=== PATIENT | male | born 1945 | race Caucasian/White ===

== ENCOUNTER 2017-08-30 14:16 | Inpatient (IN) | payer MEDICARE, OTHER ==
[2017-08-30] MEDS ORDERED: Albuterol/Ipratropium 3.0-0.5 MG/3 ML Neb Soln NEB ONE (15:09)
--- NOTE | 2017-08-30 15:27 | EDM.PDOC ---
ED HPI GENERAL MEDICAL PROBLEM - General Chief Complaint: Cardiovascular Problem Stated Complaint: SHORTNESS OF BREATH CHEST COLD Time Seen by Provider: 08/30/17 14:40 Source of Information: Reports: Patient, Family, Provider History Limitations: Reports: No Limitations - History of Present Illness INITIAL COMMENTS - FREE TEXT/NARRATIVE: 72-year-old male was sent over from the clinic because of increased respiratory effort, congestive heart failure and activity intolerance due to dyspnea. A chest x-ray was done and it was felt he had either "pneumonia or heart failure" . He was sent over to the emergency room for further evaluation. The patient has been ill for 4 days, more short of breath when lying down and can barely walk across a room without getting short of breath. 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 He has no history of asthma. He has a cough which is nonproductive. His chief complaint is shortness of breath. Onset: Gradual (4 days ago) Severity: Moderate Worsens with: Reports: Other (Lying down causes increased symptoms) Associated Symptoms: Reports: Cough, Malaise, Shortness of Breath, Weakness. Denies: Chest Pain, Fever/Chills - Related Data Allergies Allergy/AdvReac Type Severity Reaction Status Date / Time No Known Allergies Allergy Verified 08/30/17 14:35 Home Meds: Home Meds Aspirin [Halfprin] 81 mg PO DAILY 08/02/14 [History] Clopidogrel Bisulfate [Clopidogrel] 75 mg PO DAILY 08/02/14 [History] hydrALAZINE [Apresoline] 50 mg PO TID 08/02/14 [History] Carvedilol 12.5 mg PO BID 08/30/17 [History] Chlorthalidone 25 mg PO DAILY 08/30/17 [History] Lisinopril 40 mg PO DAILY 08/30/17 [History] amLODIPine Besylate [Amlodipine Besylate] 5 mg PO DAILY 08/30/17 [History] Past Medical History HEENT History: Reports: None Cardiovascular History: Reports: None Gastrointestinal History: Reports: None Genitourinary History: Reports: Hydronephrosis, Pyelonephritis Musculoskeletal History: Reports: Back Pain, Chronic, Fracture Neurological History: Reports: CVA Endocrine/Metabolic History: Reports: Obesity/BMI 30+ - Past Surgical History Head Surgeries/Procedures: Reports: None HEENT Surgical History: Reports: Myringotomy w Tube(s) Cardiovascular Surgical History: Reports: Coronary Artery Stent GI Surgical History: Reports: Cholecystectomy Male Surgical History: Reports: None Endocrine Surgical History: Reports: None Neurological Surgical History: Reports: None Musculoskeletal Surgical History: Reports: None Social & Family History - Family History Family Medical History: Noncontributory Cardiac: Reports: CAD - Tobacco Use Smoking Status *Q: Current Every Day Smoker Years of Tobacco use: 55 Packs/Tins Daily: 1 Used Tobacco, but Quit: No Second Hand Smoke Exposure: Yes - Caffeine Use Caffeine Use: Reports: Coffee - Recreational Drug Use Recreational Drug Use: No ED ROS GENERAL - Review of Systems Review Of Systems: See Below Constitutional: Reports: Malaise. Denies: Fever, Chills HEENT: Denies: Rhinitis, Throat Pain Respiratory: Reports: Shortness of Breath, Cough Cardiovascular: Reports: Lightheadedness (With activity). Denies: Chest Pain GI/Abdominal: Denies: Abdominal Pain, Nausea, Vomiting : Reports: No Symptoms Skin: Reports: No Symptoms Neurological: Denies: Headache Psychiatric: Reports: No Symptoms ED EXAM, GENERAL - Physical Exam Exam: See Below Exam Limited By: No Limitations General Appearance: Alert, Mild Distress (Patient is in mild respiratory distress with increased effort although his oxygen saturations are normal) Respiratory/Chest: Respiratory Distress, Decreased Breath Sounds, Rales, Wheezing (Patient has diffuse rales bilaterally, also diffuse expiratory wheezing) Cardiovascular: Regular Rate, Rhythm GI/Abdominal: Soft, Non-Tender Extremities: Pedal Edema (Tense bilateral lower extremity edema is present) Neurological: Alert, Oriented, No Motor/Sensory Deficits Psychiatric: Normal Affect, Normal Mood Skin Exam: Warm, Dry Course - Vital Signs Last Recorded V/S: Last Vital Signs Temp 97.8 F 08/31/17 13:57 Pulse 76 08/31/17 16:28 Resp 25 H 08/31/17 16:00 BP 186/59 H 08/31/17 16:28 Pulse Ox 96 08/31/17 17:25 - Orders/Labs/Meds Orders: Medication Orders Acetaminophen (Tylenol) 650 mg PO Q4H PRN PRN Reason: Pain (Mild 1-3)/fever Albuterol (Proventil Neb Soln) 2.5 mg NEB Q4H PRN PRN Reason: Shortness Of Breath/wheezing Last Admin: 08/31/17 17:15 Dose: 2.5 mg Albuterol/Ipratropium (Duoneb 3.0-0.5 Mg/3 Ml) 3 ml NEB QIDRT [facility] Last Admin: 08/31/17 14:21 Dose: 3 ml Admin: 08/31/17 11:11 Dose: 3 ml Admin: 08/31/17 07:21 Dose: 3 ml Admin: 08/30/17 20:40 Dose: 3 ml Amlodipine Besylate (Norvasc) 10 mg PO DAILY [facility] Last Admin: 08/31/17 09:14 Dose: 10 mg Aspirin (Halfprin) 81 mg PO DAILY [facility] Last Admin: 08/31/17 08:18 Dose: 81 mg Azithromycin (Zithromax) 500 mg PO Q24H [facility] Last Admin: 08/31/17 17:53 Dose: 500 mg Admin: 08/30/17 19:04 Dose: 500 mg Carvedilol (Coreg) 12.5 mg PO BIDMEALS [facility] Last Admin: 08/31/17 16:28 Dose: 12.5 mg Admin: 08/31/17 08:17 Dose: 12.5 mg Admin: 08/30/17 19:04 Dose: 12.5 mg Chlorthalidone (Chlorthalidone) 25 mg PO DAILY [facility] Last Admin: 08/31/17 08:18 Dose: 25 mg Clopidogrel Bisulfate (Plavix) 75 mg PO DAILY [facility] Last Admin: 08/31/17 08:18 Dose: 75 mg Hydralazine HCl (Apresoline) 75 mg PO TID [facility] Last Admin: 08/31/17 13:56 Dose: 75 mg Ceftriaxone Sodium 2 gm/ (Sodium Chloride) 50 mls @ 100 mls/hr IV Q24H [facility] Last Admin: 08/31/17 17:02 Dose: 100 mls/hr Admin: 08/30/17 19:10 Dose: 100 mls/hr Ondansetron HCl (Zofran Odt) 4 mg PO Q6H PRN PRN Reason: Nausea able to take PO Oseltamivir Phosphate (Tamiflu) 30 mg PO DAILY [facility] Last Admin: 08/31/17 09:14 Dose: 30 mg Polyethylene Glycol (Miralax) 17 gm PO DAILY PRN PRN Reason: Constipation Prednisone (Prednisone) 20 mg PO BIDAC [facility] Last Admin: 08/31/17 16:34 Dose: 20 mg Admin: 08/31/17 09:14 Dose: 20 mg Senna/Docusate Sodium (Senna Plus) 1 tab PO BID PRN PRN Reason: Constipation Sodium Chloride (Saline Flush) 10 ml FLUSH ASDIRECTED PRN PRN Reason: Keep Vein Open Last Admin: 08/30/17 16:24 Dose: 10 ml Labs: Laboratory Tests 08/30/17 08/30/17 Range/Units 15:14 15:14 WBC 7.3 (4.5-11.0) K/uL RBC 4.35 (4.30-5.90) M/uL Hgb 13.3 D (12.0-15.0) g/dL Hct 41.0 (40.0-54.0) % MCV 94 (80-98) fL MCH 31 (27-31) pg MCHC 32 (32-36) % Plt Count 152 (150-400) K/uL Neut % (Auto) 68 H (36-66) % Lymph % (Auto) 23 L (24-44) % [place] % (Auto) 8 H (2-6) % Eos % (Auto) 2 (2-4) % Baso % (Auto) 1 (0-1) % Sodium 135 L (140-148) mmol/L Potassium 5.3 H (3.6-5.2) mmol/L Chloride 104 (100-108) mmol/L Carbon Dioxide 21 (21-32) mmol/L Anion Gap 15.3 H (5.0-14.0) mmol/L BUN 34 H (7-18) mg/dL Creatinine 2.3 H (0.8-1.3) mg/dL Est Cr Clr Drug Dosing 29.46 mL/min Estimated GFR (MDRD) 28 L (>60) Glucose 112 H (74-106) mg/dL Calcium 8.5 (8.5-10.1) mg/dL Total Bilirubin 0.4 D (0.2-1.0) mg/dL AST 32 (15-37) U/L ALT 35 (12-78) U/L Alkaline Phosphatase 98 (46-116) U/L Troponin I 0.477 H* (0.000-0.056) ng/mL Total Protein 5.9 L (6.4-8.2) g/dL Albumin 2.4 L (3.4-5.0) g/dL Globulin 3.5 (2.3-3.5) g/dL Albumin/Globulin Ratio 0.7 L (1.2-2.2) Meds: Medications Generic Name Dose Route Start Last Admin Trade Name Freq PRN Reason Stop Dose Admin Acetaminophen 650 mg 08/30/17 18:09 Tylenol PO Q4H PRN Pain (Mild 1-3)/fever Albuterol 2.5 mg 08/30/17 18:09 08/31/17 17:15 Proventil Neb Soln NEB 2.5 mg Q4H PRN Administration Shortness Of Breath/wheezing Albuterol/Ipratropium 3 ml 08/30/17 21:00 08/31/17 14:21 Duoneb 3.0-0.5 Mg/3 Ml NEB 3 ml QIDRT RAN Administration Amlodipine Besylate 10 mg 08/31/17 09:00 08/31/17 09:14 Norvasc PO 10 mg DAILY RAN Administration Aspirin 81 mg 08/31/17 09:00 08/31/17 08:18 Halfprin PO 81 mg DAILY RAN Administration Azithromycin 500 mg 08/30/17 18:00 08/31/17 17:53 Zithromax PO 500 mg Q24H RAN Administration Carvedilol 12.5 mg 08/30/17 18:30 08/31/17 16:28 Coreg PO 12.5 mg BIDMEALS RAN Administration Chlorthalidone 25 mg 08/31/17 09:00 08/31/17 08:18 Chlorthalidone PO 25 mg DAILY RAN Administration Clopidogrel Bisulfate 75 mg 08/31/17 09:00 08/31/17 08:18 Plavix PO 75 mg DAILY RAN Administration Hydralazine HCl 75 mg 08/31/17 14:00 08/31/17 13:56 Apresoline PO 75 mg TID RAN Administration Ceftriaxone Sodium 2 gm/ 50 mls @ 100 mls/hr 08/30/17 17:15 08/31/17 17:02 Sodium Chloride IV 100 mls/hr Q24H RAN Administration Ondansetron HCl 4 mg 08/30/17 18:09 Zofran Odt PO Q6H PRN Nausea able to take PO Oseltamivir Phosphate 30 mg 08/31/17 09:00 08/31/17 09:14 Tamiflu PO 30 mg DAILY RAN Administration Polyethylene Glycol 17 gm 08/30/17 18:09 Miralax PO DAILY PRN Constipation Prednisone 20 mg 08/31/17 09:00 08/31/17 16:34 Prednisone PO 20 mg BIDAC RAN Administration Senna/Docusate Sodium 1 tab 08/30/17 18:09 Senna Plus PO BID PRN Constipation Sodium Chloride 10 ml 08/30/17 15:47 08/30/17 16:24 Saline Flush FLUSH 10 ml ASDIRECTED PRN Administration Keep Vein Open Discontinued Medications Generic Name Dose Route Start Last Admin Trade Name Freq PRN Reason Stop Dose Admin Albuterol/Ipratropium 3 ml 08/30/17 15:09 08/30/17 15:27 Duoneb 3.0-0.5 Mg/3 Ml NEB 08/30/17 15:10 3 ml ONETIME ONE Administration Amlodipine Besylate 5 mg 08/31/17 09:00 Norvasc PO DAILY RAN Amlodipine Besylate 5 mg 08/30/17 21:19 08/30/17 21:57 Norvasc PO 08/30/17 21:20 5 mg ONETIME ONE Administration Hydralazine HCl 50 mg 08/30/17 21:00 08/31/17 08:17 Apresoline PO 50 mg TID RAN Administration Methylprednisolone Sodium Succinate 125 mg 08/30/17 17:05 08/30/17 19:03 Solu-Medrol IVPUSH 08/30/17 17:06 125 mg ONETIME ONE Administration Methylprednisolone Sodium Succinate 62.5 mg 08/31/17 02:00 08/31/17 01:36 Solu-Medrol IVPUSH 62.5 mg Q8H RAN Administration Oseltamivir Phosphate 30 mg 08/30/17 17:15 08/30/17 19:04 Tamiflu PO 08/30/17 17:16 30 mg ONETIME ONE Administration Oseltamivir Phosphate 30 mg 08/30/17 21:00 Tamiflu PO BID RAN Oseltamivir Phosphate 30 mg 08/31/17 09:00 Tamiflu PO BID [facility] - Re-Assessments/Exams Free Text/Narrative Re-Assessment/Exam: 08/30/17 16:15 Chest x-ray from the clinic was reviewed, and appears to have possible infiltrate in the left base and some vascular congestion. A DuoNeb was given to the patient without any subjective improvement. Troponin returned 0.477. Potassium 5.3. An EKG was done which showed no ST changes, he had a first- degree block and 1 PAC. I did ask the hospitalist to talk with the patient to decide whether we can admit him here or if he needs to see cardiology. Departure - Departure Time of Disposition: 18:14 Disposition: Admitted As Inpatient 67 Condition: Fair Clinical Impression: Acute exacerbation of chronic obstructive pulmonary disease (COPD), Elevated troponin Bilateral pneumonia Qualifiers: Pneumonia type: due to unspecified organism Lung location: unspecified part of lung Qualified Code(s): J18.9 - Pneumonia, unspecified organism
[2017-08-30] MEDS ORDERED: Sodium Chloride 0.9% 10 ML Syringe FLUSH PRN (15:47)
[2017-08-30] MEDS ORDERED: methylPREDNISolone Sodium Succinate 125 MG/2 ML SDV IVPUSH ONE (17:05)
[2017-08-30] MEDS ORDERED: Oseltamivir 30 MG Cap PO ONE (17:15)
--- NOTE | 2017-08-30 17:24 | PCM.HP ---
H&P History of Present Illness - General Date of Service: 08/30/17 Admit Problem/Dx: Admission Diagnosis/Problem Admission Diagnosis/Problem Pneumonia Source of Information: Patient, Family, Provider History Limitations: Reports: No Limitations - History of Present Illness Initial Comments - Free Text/Narative: Tab presents to the emergency room with 3-4 days of progressive shortness of breath, especially with activity. He reports an intermittent but typically dry cough. Occasionally there is some clear sputum production. He has been more and more short of breath each day for the past several days. He is also short of breath when he tries to lay down flat. Laying down and leads to a significant increase in coughing. He does not report any recent episodes of chest pain or chest tightness. He does not think he's had any fevers at home and has not had episodes of diaphoresis or shaking chills. Appetite has decreased slightly. He is not aware of any sick contacts and has not traveled recently. His chronic lower extremity edema has not changed from baseline. No change in bowel or bladder habits. He was initially seen in the clinic by Dr. Collins. There was concern for congestive heart failure and given his tachypnea he was sent to the emergency room for further evaluation. His chest x-ray in the clinic was suggestive of bilateral infiltrates in the right middle lobe and lingula. Workup in the emergency room revealed a creatinine of 2.3 which is slightly higher than baseline as well as a troponin of 0.477. EKG was normal. Influenza testing was negative. He will be admitted for management of a bilateral pneumonia with influenza being a possibility despite negative testing. - Related Data Allergies/Adverse Reactions: Allergies Allergy/AdvReac Type Severity Reaction Status Date / Time No Known Allergies Allergy Verified 08/30/17 14:35 Home Medications: Home Meds Aspirin [Halfprin] 81 mg PO DAILY 08/02/14 [History] Clopidogrel Bisulfate [Clopidogrel] 75 mg PO DAILY 08/02/14 [History] hydrALAZINE [Apresoline] 50 mg PO TID 08/02/14 [History] Carvedilol 12.5 mg PO BID 08/30/17 [History] Chlorthalidone 25 mg PO DAILY 08/30/17 [History] Lisinopril 40 mg PO DAILY 08/30/17 [History] amLODIPine Besylate [Amlodipine Besylate] 5 mg PO DAILY 08/30/17 [History] Past Medical History HEENT History: Reports: None Cardiovascular History: Reports: None Gastrointestinal History: Reports: None Genitourinary History: Reports: Hydronephrosis, Pyelonephritis Musculoskeletal History: Reports: Back Pain, Chronic, Fracture Neurological History: Reports: CVA Endocrine/Metabolic History: Reports: Obesity/BMI 30+ - Past Surgical History Head Surgeries/Procedures: Reports: None HEENT Surgical History: Reports: Myringotomy w Tube(s) Cardiovascular Surgical History: Reports: Coronary Artery Stent GI Surgical History: Reports: Cholecystectomy Male Surgical History: Reports: None Endocrine Surgical History: Reports: None Neurological Surgical History: Reports: None Musculoskeletal Surgical History: Reports: None Social & Family History - Family History Family Medical History: Noncontributory Cardiac: Reports: CAD - Tobacco Use Smoking Status *Q: Current Every Day Smoker Years of Tobacco use: 55 Packs/Tins Daily: 1 Used Tobacco, but Quit: No Second Hand Smoke Exposure: Yes - Caffeine Use Caffeine Use: Reports: Coffee - Alcohol Use Alcohol Use History: No - Recreational Drug Use Recreational Drug Use: No H&P Review of Systems - Review of Systems: Review Of Systems: See Below Free Text/Narrative: A complete 12 point review of systems was obtained. Pertinent positives and negatives are noted in the history of present illness. All other systems were reviewed and were negative except as noted. Exam - Exam Exam: See Below - Vital Signs Vital Signs: Last Vital Signs Temp 36.9 C 08/30/17 14:30 Pulse 72 08/30/17 14:30 Resp 28 H 08/30/17 14:30 BP 162/69 H 08/30/17 14:30 Pulse Ox 95 08/30/17 14:30 Weight: 109.3 kg - Exam Quality Assessment: No: Supplemental Oxygen General: Alert, Oriented, Cooperative, Mild Distress HEENT: Conjunctiva Clear, Mucosa Moist & [place]. No: Scleral Icterus Neck: Supple, Trachea Midline. No: Lymphadenopathy, JVD Lungs: Rhonchi (Diffuse rhonchi), Wheezing (Diffuse expiratory wheezing). No: Normal Respiratory Effort (Increased work of breathing) Cardiovascular: Regular Rate, Regular Rhythm. No: Systolic Murmur GI/Abdominal Exam: Normal Bowel Sounds, Soft, No Distention Back Exam: Normal Inspection, Full Range of Motion Extremities: Pedal Edema (Bilateral pitting edema to the knee). No: Increased Warmth Skin: Warm, Dry Neuro Extensive - Mental Status: Alert, Oriented x3, Nl Response to Commands Neuro Extensive - Motor, Sensory, Reflexes: CN II-XII Intact. No: Dysarthria, Abnormal Motor, Tremor Psychiatric: Alert, Normal Affect - Patient Data Lab Results Last 24 hrs: Laboratory Results - last 24 hr 08/30/17 08/30/17 Range/Units 15:14 15:14 WBC 7.3 (4.5-11.0) K/uL RBC 4.35 (4.30-5.90) M/uL Hgb 13.3 D (12.0-15.0) g/dL Hct 41.0 (40.0-54.0) % MCV 94 (80-98) fL MCH 31 (27-31) pg MCHC 32 (32-36) % Plt Count 152 (150-400) K/uL Neut % (Auto) 68 H (36-66) % Lymph % (Auto) 23 L (24-44) % [place] % (Auto) 8 H (2-6) % Eos % (Auto) 2 (2-4) % Baso % (Auto) 1 (0-1) % Sodium 135 L (140-148) mmol/L Potassium 5.3 H (3.6-5.2) mmol/L Chloride 104 (100-108) mmol/L Carbon Dioxide 21 (21-32) mmol/L Anion Gap 15.3 H (5.0-14.0) mmol/L BUN 34 H (7-18) mg/dL Creatinine 2.3 H (0.8-1.3) mg/dL Est Cr Clr Drug Dosing 29.46 mL/min Estimated GFR (MDRD) 28 L (>60) Glucose 112 H (74-106) mg/dL Calcium 8.5 (8.5-10.1) mg/dL Total Bilirubin 0.4 D (0.2-1.0) mg/dL AST 32 (15-37) U/L ALT 35 (12-78) U/L Alkaline Phosphatase 98 (46-116) U/L Troponin I 0.477 H* (0.000-0.056) ng/mL Total Protein 5.9 L (6.4-8.2) g/dL Albumin 2.4 L (3.4-5.0) g/dL Globulin 3.5 (2.3-3.5) g/dL Albumin/Globulin Ratio 0.7 L (1.2-2.2) Result Diagrams: 08/30/17 15:14 08/30/17 15:14 Julio César Results Last 24 hrs: Microbiology 08/30/17 15:02 Influenza Type A Antigen Screen - Final Nasal Aspirate, Left NEGATIVE INFLUENZA A VIRUS AG Influenza Type B Antigen Screen - Final NEGATIVE INFLUENZA B VIRUS AG Imaging Impressions Last 24 hrs: Chest x-ray - images from the clinic are personally reviewed -There is a right- sided infiltrate as well as a subtle left-sided infiltrate. No significant evidence for vascular congestion. Heart size is normal. I don't appreciate any masses. EKG INTERPRETATION EKG Date: 08/30/17 Rhythm: NSR Rate (Beats/Min): 71 [place]: Normal P-Wave: Present QRS: Normal ST-T: Normal QT: Normal *Q Meaningful Use (ADM) - VTE *Q VTE Criteria *Q: - VTE Risk Assess *Q Each Risk Factor Represents 1 Point: Swollen Legs, Current, Obesity ( BMI > 25 kg/m2), Serious lung disease including pneumonia, Abnormal Pulmonary Function ( COPD) Total Score 1 Point Risk Factors: 4 Each Risk Factor Represents 2 Points: Age 60 - 74 Years Total Score 2 Point Risk Factors: 2 Each Risk Factor Represents 3 Points: None Total Score 3 Point Risk Factors: 0 Each Risk Factor Represents 5 Points: None Total Score 5 Point Risk Factors: 0 Venous Thromboembolism Risk Factor Score *Q: 6 - Stroke *Q Stroke Criteria *Q: - AMI *Q AMI Criteria *Q: - Problem List (1) Bilateral pneumonia SNOMED Code(s): 916965231 ICD Code: J18.9 - PNEUMONIA, UNSPECIFIED ORGANISM Status: Acute Current Visit: Yes Qualifiers: Pneumonia type: due to unspecified organism Lung location: unspecified part of lung Qualified Code(s): J18.9 - Pneumonia, unspecified organism (2) Acute exacerbation of chronic obstructive pulmonary disease (COPD) SNOMED Code(s): 097999184 ICD Code: J44.1 - CHRONIC OBSTRUCTIVE PULMONARY DISEASE W (ACUTE) EXACERBATION Status: Acute Current Visit: Yes (3) Stage III chronic kidney disease SNOMED Code(s): 448632562 ICD Code: N18.3 - CHRONIC KIDNEY DISEASE, STAGE 3 (MODERATE) Status: Chronic Current Visit: Yes (4) Hyperkalemia SNOMED Code(s): 69659919 ICD Code: E87.5 - HYPERKALEMIA Status: Acute Current Visit: Yes (5) Elevated troponin SNOMED Code(s): 489726739, 215708177 ICD Code: R74.8 - ABNORMAL LEVELS OF OTHER SERUM ENZYMES Status: Acute Current Visit: Yes Problem List Initiated/Reviewed/Updated: Yes Orders Last 24hrs: Active Orders 24 hr Category Date Time Status Patient Status Manage Transfer [TRANSFER] Routine ADT 08/30/17 17:07 Ordered EKG Documentation Completion [RC] ASDIRECTED Care 08/30/17 15:55 Active RT Aerosol Therapy [RC] ASDIRECTED Care 08/30/17 15:09 Active Sodium Chloride 0.9% [Saline Flush] Med 08/30/17 15:47 Active 10 ml FLUSH ASDIRECTED PRN cefTRIAXone [Rocephin] 2 gm Med 08/30/17 17:15 Active Sodium Chloride 0.9% [Normal Saline] 50 ml IV Q24H Saline Lock Insert [OM.PC] Routine Oth 08/30/17 15:47 Ordered Resuscitation Status Routine Resus Stat 08/30/17 17:09 Ordered EKG 12 Lead [EK] Routine Ther 08/30/17 15:55 Ordered Medication Orders Ceftriaxone Sodium 2 gm/ (Sodium Chloride) 50 mls @ 100 mls/hr IV Q24H RAN Sodium Chloride (Saline Flush) 10 ml FLUSH ASDIRECTED PRN PRN Reason: Keep Vein Open Last Admin: 08/30/17 16:24 Dose: 10 ml Assessment/Plan Comment:: ASSESSMENT AND PLAN - Bilateral pneumonia with acute exacerbation of COPD - white blood cell count is normal, unclear if viral or bacterial. Influenza would be in the differential. I don't think he has significant heart failure at this time. Definite evidence for COPD exacerbation with wheezing. I'm planning to cover both viral and bacterial causes until more information can be obtained. -Tamiflu -Ceftriaxone and azithromycin -IV steroids -Hold off on IV fluids at this time unless he becomes hypotensive -Supplement oxygen if needed -Scheduled and as needed nebulizers Elevated troponin - no recent episodes of chest pain, EKG is normal. I suspect this is a demand ischemia-type picture with a presumed pneumonia and impaired renal clearance with stage III kidney disease. -Serial troponin levels -Cardiac monitoring Hyperkalemia - mild at this time. Could be related to his DAGOBERTO inhibitor. -Hold lisinopril Essential hypertension - significant hypertension history and he is currently on 5 antihypertensives. Despite this blood pressure still running a little high. Some concern that the lisinopril may be contributing to hyperkalemia as above. -Continue beta nguyen, calcium channel nguyen, hydralazine and chlorthalidone Stage III chronic kidney disease - kidney function slightly worsened baseline at this time. No strong evidence for either height failure or dehydration. -Repeat labs in the morning Maintenance issues - - DVT prophylaxis - BRISEYDA stockings - GI prophylaxis - not indicated - Nutrition - regular diet - Francis catheter - not indicated CODE STATUS - full code Admission justification - This patient will be admitted for inpatient services and is medically appropriate meeting medical necessity for inpatient admission as outlined in my documentation. I reasonably expect the patient will require inpatient services that span a period time over 2 midnights. I reasonably expect this patient to be discharged or transferred within 96 hours [facility]. Disposition - anticipate discharge home after the hospital stay Primary care physician - Dr. Dennis Stringer M.D.
[2017-08-30] MEDS ORDERED: Acetaminophen 325 MG Tab PO PRN (18:09)
[2017-08-30] MEDS ORDERED: Polyethylene Glycol 3350 Powder 17 GM Packet PO PRN (18:09)
[2017-08-30] MEDS ORDERED: Ondansetron 4 MG Tab.DIS PO PRN (18:09)
[2017-08-30] MEDS: Azithromycin 250 MG Tab PO SCH (19:04)
[2017-08-30] MEDS: Carvedilol 12.5 MG Tab PO SCH (19:04)
[2017-08-30] MEDS: cefTRIAXone 2 GM in Sodium Chloride 0.9% 50 ML IV SCH (19:10)
[2017-08-30] MEDS: hydrALAZINE 25 MG Tab PO SCH (20:39)
[2017-08-30] MEDS: Albuterol/Ipratropium 3.0-0.5 MG/3 ML Neb Soln NEB SCH (20:40)
[2017-08-30] MEDS ORDERED: Oseltamivir 30 MG Cap PO SCH (21:00)
[2017-08-30] MEDS ORDERED: amLODIPine 5 MG Tab PO ONE (21:19)
[2017-08-31] MEDS ORDERED: methylPREDNISolone Sodium Succinate 125 MG/2 ML SDV IVPUSH SCH (02:00)
[2017-08-31] MEDS: Albuterol/Ipratropium 3.0-0.5 MG/3 ML Neb Soln NEB SCH ×4 (07:21→20:51)
[2017-08-31] MEDS: Carvedilol 12.5 MG Tab PO SCH ×2 (08:17→16:28)
[2017-08-31] MEDS: hydrALAZINE 25 MG Tab PO SCH ×3 (08:17→20:51)
[2017-08-31] MEDS: Aspirin 81 MG Tab.EC PO SCH (08:18)
[2017-08-31] MEDS: Chlorthalidone 25 MG Tab PO SCH (08:18)
[2017-08-31] MEDS: Clopidogrel 75 MG Tab PO SCH (08:18)
--- NOTE | 2017-08-31 08:48 | PCM.PN ---
- General Info Date of Service: 08/31/17 Functional Status: Reports: Pain Controlled, Tolerating Diet, Ambulating - Review of Systems General: Denies: Fever Pulmonary: Reports: Shortness of Breath, Cough Systems Review Comment:: There were no acute events overnight. Patient reports significant improvement in his shortness of breath. He is still coughing but this has improved compared to the last couple of days. No complaints of chest pain or chest tightness. Respiratory rate has improved and heart rate has decreased into the 60s. Blood pressure has remained elevated. Troponin level is trending down. Kidney function and potassium level are stable. - Patient Data Vitals - Most Recent: Last Vital Signs Temp 37.2 C 08/31/17 07:29 Pulse 71 08/31/17 08:17 Resp 19 08/31/17 07:29 BP 218/82 H 08/31/17 08:17 Pulse Ox 97 08/31/17 07:29 Weight - Most Recent: 108.227 kg I&O - Last 24 Hours: Intake & Output 08/30/17 08/31/17 08/31/17 22:59 06:59 14:59 Intake Total 530 Balance 530 Lab Results Last 24 Hours: Laboratory Results - last 24 hr 08/30/17 08/31/17 08/31/17 Range/Units 20:13 05:45 05:45 WBC 3.7 L (4.5-11.0) K/uL RBC 3.88 L (4.30-5.90) M/uL Hgb 11.9 L (12.0-15.0) g/dL Hct 36.7 L (40.0-54.0) % MCV 95 (80-98) fL MCH 31 (27-31) pg MCHC 32 (32-36) % Plt Count 141 L (150-400) K/uL Sodium 134 L (140-148) mmol/L Potassium 5.4 H (3.6-5.2) mmol/L Chloride 106 (100-108) mmol/L Carbon Dioxide 21 (21-32) mmol/L Anion Gap 12.4 (5.0-14.0) mmol/L BUN 39 H (7-18) mg/dL Creatinine 2.5 H (0.8-1.3) mg/dL Est Cr Clr Drug Dosing 27.01 mL/min Estimated GFR (MDRD) 26 L (>60) Glucose 158 H (74-106) mg/dL Calcium 8.3 L (8.5-10.1) mg/dL Magnesium 1.9 (1.8-2.4) mg/dL Troponin I 0.418 H* 0.340 H* (0.000-0.056) ng/mL Julio César Results Last 24 Hours: Microbiology 08/31/17 07:36 Gram Stain - Final Sputum - Expectorated Med Orders - Current: Current Medications Acetaminophen (Tylenol) 650 mg PO Q4H PRN PRN Reason: Pain (Mild 1-3)/fever Albuterol (Proventil Neb Soln) 2.5 mg NEB Q4H PRN PRN Reason: Shortness Of Breath/wheezing Albuterol/Ipratropium (Duoneb 3.0-0.5 Mg/3 Ml) 3 ml NEB QIDRT [facility] Last Admin: 08/31/17 07:21 Dose: 3 ml Amlodipine Besylate (Norvasc) 10 mg PO DAILY [facility] Aspirin (Halfprin) 81 mg PO DAILY [facility] Last Admin: 08/31/17 08:18 Dose: 81 mg Azithromycin (Zithromax) 500 mg PO Q24H [facility] Last Admin: 08/30/17 19:04 Dose: 500 mg Carvedilol (Coreg) 12.5 mg PO BIDMEALS [facility] Last Admin: 08/31/17 08:17 Dose: 12.5 mg Chlorthalidone (Chlorthalidone) 25 mg PO DAILY [facility] Last Admin: 08/31/17 08:18 Dose: 25 mg Clopidogrel Bisulfate (Plavix) 75 mg PO DAILY [facility] Last Admin: 08/31/17 08:18 Dose: 75 mg Hydralazine HCl (Apresoline) 50 mg PO TID [facility] Last Admin: 08/31/17 08:17 Dose: 50 mg Ceftriaxone Sodium 2 gm/ (Sodium Chloride) 50 mls @ 100 mls/hr IV Q24H [facility] Last Admin: 08/30/17 19:10 Dose: 100 mls/hr Ondansetron HCl (Zofran Odt) 4 mg PO Q6H PRN PRN Reason: Nausea able to take PO Oseltamivir Phosphate (Tamiflu) 30 mg PO DAILY [facility] Polyethylene Glycol (Miralax) 17 gm PO DAILY PRN PRN Reason: Constipation Prednisone (Prednisone) 20 mg PO BIDAC [facility] Senna/Docusate Sodium (Senna Plus) 1 tab PO BID PRN PRN Reason: Constipation Sodium Chloride (Saline Flush) 10 ml FLUSH ASDIRECTED PRN PRN Reason: Keep Vein Open Last Admin: 08/30/17 16:24 Dose: 10 ml Discontinued Medications Albuterol/Ipratropium (Duoneb 3.0-0.5 Mg/3 Ml) 3 ml NEB ONETIME ONE Stop: 08/30/17 15:10 Last Admin: 08/30/17 15:27 Dose: 3 ml Amlodipine Besylate (Norvasc) 5 mg PO DAILY [facility] Amlodipine Besylate (Norvasc) 5 mg PO ONETIME ONE Stop: 08/30/17 21:20 Last Admin: 08/30/17 21:57 Dose: 5 mg Methylprednisolone Sodium Succinate (Solu-Medrol) 125 mg IVPUSH ONETIME ONE Stop: 08/30/17 17:06 Last Admin: 08/30/17 19:03 Dose: 125 mg Methylprednisolone Sodium Succinate (Solu-Medrol) 62.5 mg IVPUSH Q8H [facility] Last Admin: 08/31/17 01:36 Dose: 62.5 mg Oseltamivir Phosphate (Tamiflu) 30 mg PO ONETIME ONE Stop: 08/30/17 17:16 Last Admin: 08/30/17 19:04 Dose: 30 mg Oseltamivir Phosphate (Tamiflu) 30 mg PO BID [facility] Oseltamivir Phosphate (Tamiflu) 30 mg PO BID RAN - Exam Quality Assessment: No: Supplemental Oxygen General: Alert, Oriented, Cooperative, No Acute Distress Neck: Supple Lungs: Normal Respiratory Effort, Rhonchi (diffuse end expiratory ), Wheezing ( mild diffuse end exp) Cardiovascular: Regular Rate, Regular Rhythm GI/Abdominal Exam: Soft, No Distention Extremities: Pedal Edema Skin: Warm, Dry Psy/Mental Status: Alert, Normal Affect - Problem List & Annotations (1) Bilateral pneumonia SNOMED Code(s): 243451460 Code(s): J18.9 - PNEUMONIA, UNSPECIFIED ORGANISM Status: Acute Current Visit: Yes Qualifiers: Pneumonia type: due to unspecified organism Lung location: unspecified part of lung Qualified Code(s): J18.9 - Pneumonia, unspecified organism (2) Acute exacerbation of chronic obstructive pulmonary disease (COPD) SNOMED Code(s): 740765083 Code(s): J44.1 - CHRONIC OBSTRUCTIVE PULMONARY DISEASE W (ACUTE) EXACERBATION Status: Acute Current Visit: Yes (3) Stage III chronic kidney disease SNOMED Code(s): 508299163 Code(s): N18.3 - CHRONIC KIDNEY DISEASE, STAGE 3 (MODERATE) Status: Chronic Current Visit: Yes (4) Hyperkalemia SNOMED Code(s): 68368495 Code(s): E87.5 - HYPERKALEMIA Status: Acute Current Visit: Yes (5) Elevated troponin SNOMED Code(s): 798279786, 533507992 Code(s): R74.8 - ABNORMAL LEVELS OF OTHER SERUM ENZYMES Status: Acute Current Visit: Yes - Problem List Review Problem List Initiated/Reviewed/Updated: Yes - My Orders Last 24 Hours: My Active Orders 08/30/17 17:09 Resuscitation Status Routine 08/30/17 18:00 Azithromycin [Zithromax] 500 mg PO Q24H 08/30/17 18:09 Patient Status [ADT] Routine Cardiac Monitoring [RC] Q6H Intake and Output [RC] QSHIFT Notify Provider Vital Signs [RC] ASDIRECTED Oxygen Therapy [RC] PRN Pulse Oximetry [RC] CONTINUOUS RT Aerosol Therapy [RC] ASDIRECTED Up With Assistance [RC] ASDIRECTED VTE/DVT Education [RC] Per Unit Routine Vital Signs [RC] Q2HR Acetaminophen [Tylenol] 650 mg PO Q4H PRN Albuterol [Proventil Neb Soln] 2.5 mg NEB Q4H PRN Docusate Sodium/Sennosides [Senna Plus] 1 tab PO BID PRN Ondansetron [Zofran ODT] 4 mg PO Q6H PRN Polyethylene Glycol 3350 [MiraLAX] 17 gm PO DAILY PRN Antiembolic Hose [OM.PC] Per Unit Routine 08/30/17 21:00 Albuterol/Ipratropium [DuoNeb 3.0-0.5 MG/3 ML] 3 ml NEB QIDRT 08/30/17 Dinner Regular Diet [DIET] 08/31/17 02:00 methylPREDNISolone Sod Succ [Solu-MEDROL] 62.5 mg IVPUSH Q8H 08/31/17 07:00 Echo Comp wo Cont [US] Routine 08/31/17 07:36 CULTURE RESPIRATORY + SMEAR [RM] Routine 08/31/17 09:00 Oseltamivir [Tamiflu] 30 mg PO DAILY amLODIPine [Norvasc] 10 mg PO DAILY predniSONE 20 mg PO BIDAC 09/01/17 05:00 BASIC METABOLIC PANEL,BMP [CHEM] Timed CBC W/O DIFF,HEMOGRAM [HEME] Timed (1) TROPONIN I [CHEM] Timed - Plan Plan:: ASSESSMENT AND PLAN - Bilateral pneumonia with acute exacerbation of COPD - white blood cell count is normal, unclear if viral or bacterial. Clinically doing much better today. Plan to continue current treatment other than transition to by mouth steroids. -Tamiflu -Ceftriaxone and azithromycin -Transition to prednisone -Supplement oxygen if needed -Scheduled and as needed nebulizers Elevated troponin - no recent episodes of chest pain, EKG is normal. Level has trended down. Suspect demand ischemia in the setting of acute respiratory infection rather than acute coronary syndrome. -Repeat troponin in the morning -Cardiac monitoring Hyperkalemia - mild at this time, stable. Suspect contribution from DAGOBERTO inhibitor. -Hold lisinopril Essential hypertension - blood pressure did a little better overnight but is elevated again this morning. Plan to increase calcium channel nguyen and may need to increase hydralazine. -Continue beta nguyen, hydralazine and chlorthalidone -Increase amlodipine to 10 mg daily -Lisinopril is on hold as above Stage III chronic kidney disease - kidney function slightly worse compared to yesterday, still suspicious this is related to his DAGOBERTO inhibitor. -Repeat labs in the morning Maintenance issues - - DVT prophylaxis - BRISEYDA stockings - GI prophylaxis - not indicated - Nutrition - regular diet Disposition - anticipate discharge home after the hospital stay Trenton Stringer M.D.
[2017-08-31] MEDS ORDERED: Oseltamivir 30 MG Cap PO SCH (09:00)
[2017-08-31] MEDS ORDERED: amLODIPine 5 MG Tab PO SCH (09:00)
[2017-08-31] MEDS: amLODIPine 10 MG Tab PO SCH (09:14)
[2017-08-31] MEDS: predniSONE 20 MG Tab PO SCH ×2 (09:14→16:34)
[2017-08-31] MEDS: Oseltamivir 30 MG Cap PO SCH (09:14)
[2017-08-31] MEDS: cefTRIAXone 2 GM in Sodium Chloride 0.9% 50 ML IV SCH (17:02)
[2017-08-31] MEDS: Albuterol 0.083% 2.5 MG/3 ML Neb Soln NEB PRN ×2 (17:15→23:43)
[2017-08-31] MEDS: Azithromycin 250 MG Tab PO SCH (17:53)
[2017-08-31] MEDS: Benzonatate 100 MG Cap PO PRN (22:11)
[2017-09-01] MEDS: Albuterol 0.083% 2.5 MG/3 ML Neb Soln NEB PRN ×2 (03:39→22:56)
[2017-09-01] MEDS: Benzonatate 100 MG Cap PO PRN ×3 (03:53→17:27)
[2017-09-01] MEDS: Albuterol/Ipratropium 3.0-0.5 MG/3 ML Neb Soln NEB SCH ×4 (07:10→20:05)
[2017-09-01] MEDS: predniSONE 20 MG Tab PO SCH ×2 (08:07→16:54)
[2017-09-01] MEDS: Carvedilol 12.5 MG Tab PO SCH ×2 (08:08→16:54)
[2017-09-01] MEDS: hydrALAZINE 25 MG Tab PO SCH ×3 (08:11→20:05)
[2017-09-01] MEDS: Clopidogrel 75 MG Tab PO SCH (08:12)
[2017-09-01] MEDS: Chlorthalidone 25 MG Tab PO SCH (08:12)
[2017-09-01] MEDS: Aspirin 81 MG Tab.EC PO SCH (08:12)
[2017-09-01] MEDS: amLODIPine 10 MG Tab PO SCH (08:13)
[2017-09-01] MEDS: Oseltamivir 30 MG Cap PO SCH (08:13)
[2017-09-01] MEDS ORDERED: Sodium Chloride 0.9% 1,000 ML IV SCH (08:45)
--- NOTE | 2017-09-01 08:45 | PCM.PN ---
- General Info Date of Service: 09/01/17 Functional Status: Reports: Pain Controlled, Tolerating Diet - Review of Systems General: Denies: Fever Pulmonary: Reports: Shortness of Breath, Cough Systems Review Comment:: No acute events overnight but blood pressure did remain on the high side. Still coughing a fair amount and thinks that his breathing is about the same as yesterday with mild to moderate shortness of breath. Did get a good night sleep. No complaints of chest pain or abdominal pain. He has not had any fevers. Troponin level continues to trend down. Kidney function is slightly worse today than yesterday but potassium is normal. - Patient Data Vitals - Most Recent: Last Vital Signs Temp 36.4 C 09/01/17 07:46 Pulse 79 09/01/17 08:08 Resp 20 09/01/17 07:46 BP 203/66 H 09/01/17 08:13 Pulse Ox 96 09/01/17 07:46 Weight - Most Recent: 108.227 kg I&O - Last 24 Hours: Intake & Output 08/31/17 09/01/17 09/01/17 22:59 06:59 14:59 Intake Total 1150 900 Balance 1150 900 Lab Results Last 24 Hours: Laboratory Results - last 24 hr 09/01/17 09/01/17 Range/Units 05:00 05:00 WBC 9.2 (4.5-11.0) K/uL RBC 3.88 L (4.30-5.90) M/uL Hgb 11.6 L (12.0-15.0) g/dL Hct 36.4 L (40.0-54.0) % MCV 94 (80-98) fL MCH 30 (27-31) pg MCHC 32 (32-36) % Plt Count 159 (150-400) K/uL Sodium 133 L (140-148) mmol/L Potassium 5.0 (3.6-5.2) mmol/L Chloride 106 (100-108) mmol/L Carbon Dioxide 18 L (21-32) mmol/L Anion Gap 14.0 (5.0-14.0) mmol/L BUN 59 H D (7-18) mg/dL Creatinine 2.8 H (0.8-1.3) mg/dL Est Cr Clr Drug Dosing 24.12 mL/min Estimated GFR (MDRD) 22 L (>60) Glucose 134 H (74-106) mg/dL Calcium 8.5 (8.5-10.1) mg/dL Troponin I 0.269 H* (0.000-0.056) ng/mL Julio César Results Last 24 Hours: Microbiology 08/31/17 07:36 Gram Stain - Final Sputum - Expectorated Respiratory Culture - Preliminary NORMAL RESPIRATORY JOSIE 1 DAY Med Orders - Current: Current Medications Acetaminophen (Tylenol) 650 mg PO Q4H PRN PRN Reason: Pain (Mild 1-3)/fever Albuterol (Proventil Neb Soln) 2.5 mg NEB Q4H PRN PRN Reason: Shortness Of Breath/wheezing Last Admin: 09/01/17 03:39 Dose: 2.5 mg Albuterol/Ipratropium (Duoneb 3.0-0.5 Mg/3 Ml) 3 ml NEB QIDRT [facility] Last Admin: 09/01/17 07:10 Dose: 3 ml Amlodipine Besylate (Norvasc) 10 mg PO DAILY [facility] Last Admin: 09/01/17 08:13 Dose: 10 mg Aspirin (Halfprin) 81 mg PO DAILY [facility] Last Admin: 09/01/17 08:12 Dose: 81 mg Azithromycin (Zithromax) 500 mg PO Q24H [facility] Last Admin: 08/31/17 17:53 Dose: 500 mg Benzonatate (Tessalon Perles) 100 mg PO TID PRN PRN Reason: Cough Last Admin: 09/01/17 08:10 Dose: 100 mg Carvedilol (Coreg) 12.5 mg PO BIDMEALS [facility] Last Admin: 09/01/17 08:08 Dose: 12.5 mg Chlorthalidone (Chlorthalidone) 25 mg PO DAILY [facility] Last Admin: 09/01/17 08:12 Dose: 25 mg Clopidogrel Bisulfate (Plavix) 75 mg PO DAILY [facility] Last Admin: 09/01/17 08:12 Dose: 75 mg Hydralazine HCl (Apresoline) 75 mg PO TID [facility] Last Admin: 09/01/17 08:11 Dose: 75 mg Ceftriaxone Sodium 2 gm/ (Sodium Chloride) 50 mls @ 100 mls/hr IV Q24H [facility] Last Admin: 08/31/17 17:02 Dose: 100 mls/hr Ondansetron HCl (Zofran Odt) 4 mg PO Q6H PRN PRN Reason: Nausea able to take PO Oseltamivir Phosphate (Tamiflu) 30 mg PO DAILY [facility] Last Admin: 09/01/17 08:13 Dose: 30 mg Polyethylene Glycol (Miralax) 17 gm PO DAILY PRN PRN Reason: Constipation Prednisone (Prednisone) 20 mg PO BIDAC [facility] Last Admin: 09/01/17 08:07 Dose: 20 mg Senna/Docusate Sodium (Senna Plus) 1 tab PO BID PRN PRN Reason: Constipation Sodium Chloride (Saline Flush) 10 ml FLUSH ASDIRECTED PRN PRN Reason: Keep Vein Open Last Admin: 08/30/17 16:24 Dose: 10 ml Discontinued Medications Albuterol/Ipratropium (Duoneb 3.0-0.5 Mg/3 Ml) 3 ml NEB ONETIME ONE Stop: 08/30/17 15:10 Last Admin: 08/30/17 15:27 Dose: 3 ml Amlodipine Besylate (Norvasc) 5 mg PO DAILY [facility] Amlodipine Besylate (Norvasc) 5 mg PO ONETIME ONE Stop: 08/30/17 21:20 Last Admin: 08/30/17 21:57 Dose: 5 mg Hydralazine HCl (Apresoline) 50 mg PO TID [facility] Last Admin: 08/31/17 08:17 Dose: 50 mg Methylprednisolone Sodium Succinate (Solu-Medrol) 125 mg IVPUSH ONETIME ONE Stop: 08/30/17 17:06 Last Admin: 08/30/17 19:03 Dose: 125 mg Methylprednisolone Sodium Succinate (Solu-Medrol) 62.5 mg IVPUSH Q8H [facility] Last Admin: 08/31/17 01:36 Dose: 62.5 mg Oseltamivir Phosphate (Tamiflu) 30 mg PO ONETIME ONE Stop: 08/30/17 17:16 Last Admin: 08/30/17 19:04 Dose: 30 mg Oseltamivir Phosphate (Tamiflu) 30 mg PO BID [facility] Oseltamivir Phosphate (Tamiflu) 30 mg PO BID [facility] - Exam Quality Assessment: No: Supplemental Oxygen General: Alert, Oriented, Cooperative, No Acute Distress Neck: Supple Lungs: Normal Respiratory Effort, Rhonchi (mild diffuse end exp), Wheezing ( mild diffuse end exp) Cardiovascular: Regular Rate, Regular Rhythm GI/Abdominal Exam: Soft, No Distention Extremities: Pedal Edema Psy/Mental Status: Alert, Normal Affect - Problem List & Annotations (1) Bilateral pneumonia SNOMED Code(s): 227072707 Code(s): J18.9 - PNEUMONIA, UNSPECIFIED ORGANISM Status: Acute Current Visit: Yes Qualifiers: Pneumonia type: due to unspecified organism Lung location: unspecified part of lung Qualified Code(s): J18.9 - Pneumonia, unspecified organism (2) Acute exacerbation of chronic obstructive pulmonary disease (COPD) SNOMED Code(s): 435161893 Code(s): J44.1 - CHRONIC OBSTRUCTIVE PULMONARY DISEASE W (ACUTE) EXACERBATION Status: Acute Current Visit: Yes (3) Stage III chronic kidney disease SNOMED Code(s): 626231010 Code(s): N18.3 - CHRONIC KIDNEY DISEASE, STAGE 3 (MODERATE) Status: Chronic Current Visit: Yes (4) Hyperkalemia SNOMED Code(s): 55506705 Code(s): E87.5 - HYPERKALEMIA Status: Acute Current Visit: Yes (5) Elevated troponin SNOMED Code(s): 208034951, 066126056 Code(s): R74.8 - ABNORMAL LEVELS OF OTHER SERUM ENZYMES Status: Acute Current Visit: Yes - Problem List Review Problem List Initiated/Reviewed/Updated: Yes - My Orders Last 24 Hours: My Active Orders 08/31/17 09:00 Oseltamivir [Tamiflu] 30 mg PO DAILY amLODIPine [Norvasc] 10 mg PO DAILY predniSONE 20 mg PO BIDAC 08/31/17 14:00 hydrALAZINE [Apresoline] 75 mg PO TID 08/31/17 21:50 Benzonatate [Tessalon Perles] 100 mg PO TID PRN 09/01/17 07:00 Echo Comp wo Cont [US] Routine 09/01/17 08:43 Renal Comp [US] Routine 09/01/17 08:45 Sodium Chloride 0.9% [Normal Saline] 1,000 ml IV ASDIRECTED 09/02/17 05:00 BASIC METABOLIC PANEL,BMP [CHEM] Timed CBC W/O DIFF,HEMOGRAM [HEME] Timed (1) - Plan Plan:: ASSESSMENT AND PLAN - Bilateral pneumonia with acute exacerbation of COPD - white blood cell count is normal, unclear if viral or bacterial. Clinically stable but not dramatically better. Has not required supplemental oxygen. Has been doing a fair amount of coughing and short of breath with activity. -Tamiflu -Ceftriaxone and azithromycin -Continue prednisone -Supplement oxygen if needed -Scheduled and as needed nebulizers Elevated troponin - no recent episodes of chest pain, EKG is normal. Level has continued to trend down. Suspect demand ischemia in the setting of respiratory infection. -Cardiac monitoring Hyperkalemia - potassium level now back in the normal range. -Hold lisinopril Accelerated hypertension - blood pressure was elevated throughout most of the day and overnight. I did increase his hydralazine yesterday without any improvement. Kidney function not quite as good today as yesterday. -Continue beta nguyen, hydralazine and chlorthalidone -Continue amlodipine 10 mg daily -Lisinopril is on hold as above -Trial of IV fluids to see if this will help improve his blood pressure -Consider further increase in his hydralazine Stage III chronic kidney disease - kidney function slightly worse again today and BUN has risen. Planning trial of hydration. -IV fluids, 1 L over 4 hours -Repeat labs in the morning Maintenance issues - - DVT prophylaxis - BRISEYDA stockings - GI prophylaxis - not indicated - Nutrition - regular diet Disposition - anticipate discharge home after the hospital stay Trenton Stringer M.D.
--- NOTE | 2017-09-01 09:54 | US ---
Renal Comp HISTORY: acute renal failure FINDINGS: Both kidneys appear within normal limits in size and echogenicity. The right measures 12.6 x 6.5 x 6.7 cm. The left measures 12.4 x 5.7 x 5.4 cm. There are areas of cortical scarring in each k idney. Both kidneys have a mildly lobular contour. Probable cyst lower pole left kidney measures 1.8 x 1.2 x 0.8 cm. Hypoechoic probable cyst mid right kidney measures 2.8 x 2.0 x 1.2 cm. Extrarenal pel vis is noted on the right. No renal mass or hydronephrosis is identified. There is no thinning of eit her renal cortex. Perirenal soft tissues are unremarkable. Urinary bladder is within normal limits in size and contour. No mass or abnormal filling defect is se en. Ureteral jets are identified from each ureteral orifice with color Doppler. IMPRESSION: Areas of cortical scarring can be seen in each kidney similar to CT study of 10/16/2015. P robable small cyst is seen in each kidney. No other sonographic abnormality is identified.
[2017-09-01] MEDS: cefTRIAXone 2 GM in Sodium Chloride 0.9% 50 ML IV SCH (16:55)
[2017-09-01] MEDS: Azithromycin 250 MG Tab PO SCH (17:27)
[2017-09-02] MEDS: Albuterol 0.083% 2.5 MG/3 ML Neb Soln NEB PRN (02:42)
[2017-09-02] MEDS: Benzonatate 100 MG Cap PO PRN ×3 (02:42→17:53)
[2017-09-02] MEDS: Albuterol/Ipratropium 3.0-0.5 MG/3 ML Neb Soln NEB SCH ×4 (06:56→20:57)
[2017-09-02] MEDS: predniSONE 20 MG Tab PO SCH ×2 (08:30→16:08)
[2017-09-02] MEDS: Carvedilol 12.5 MG Tab PO SCH ×2 (08:31→16:08)
[2017-09-02] MEDS: hydrALAZINE 25 MG Tab PO SCH ×3 (08:32→20:57)
[2017-09-02] MEDS: Aspirin 81 MG Tab.EC PO SCH (08:33)
[2017-09-02] MEDS: Chlorthalidone 25 MG Tab PO SCH (08:34)
[2017-09-02] MEDS: amLODIPine 10 MG Tab PO SCH (08:34)
[2017-09-02] MEDS: Oseltamivir 30 MG Cap PO SCH (08:35)
[2017-09-02] MEDS: Clopidogrel 75 MG Tab PO SCH (08:35)
[2017-09-02] MEDS: cloNIDine 0.1 MG Tab PO SCH ×2 (08:44→20:57)
--- NOTE | 2017-09-02 09:10 | PCM.PN ---
- General Info Date of Service: 09/02/17 Functional Status: Reports: Pain Controlled, Tolerating Diet - Review of Systems Pulmonary: Reports: Shortness of Breath, Cough Systems Review Comment:: No acute events overnight. Patient feels a little better but still is short of breath with activity and has been doing a fair amount of coughing. Coughing did impair his sleep overnight. No complaints of chest pain. Blood pressure has remained high overnight with systolic pressures in the 190-200 range. He has not had any fevers. Sputum culture growing normal respiratory wanda. Kidney function is slightly better today. - Patient Data Vitals - Most Recent: Last Vital Signs Temp 36.7 C 09/02/17 03:59 Pulse 70 09/02/17 08:31 Resp 22 H 09/02/17 05:57 BP 182/58 H 09/02/17 08:44 Pulse Ox 95 09/02/17 05:57 Weight - Most Recent: 108.227 kg I&O - Last 24 Hours: Intake & Output 09/01/17 09/02/17 09/02/17 22:59 06:59 14:59 Intake Total 1460 850 360 Output Total 600 Balance 860 850 360 Lab Results Last 24 Hours: Laboratory Results - last 24 hr 09/02/17 09/02/17 Range/Units 04:30 04:30 WBC 8.7 (4.5-11.0) K/uL RBC 3.81 L (4.30-5.90) M/uL Hgb 11.8 L (12.0-15.0) g/dL Hct 36.3 L (40.0-54.0) % MCV 95 (80-98) fL MCH 31 (27-31) pg MCHC 33 (32-36) % Plt Count 164 (150-400) K/uL Sodium 134 L (140-148) mmol/L Potassium 5.0 (3.6-5.2) mmol/L Chloride 106 (100-108) mmol/L Carbon Dioxide 21 (21-32) mmol/L Anion Gap 12.0 (5.0-14.0) mmol/L BUN 63 H (7-18) mg/dL Creatinine 2.6 H (0.8-1.3) mg/dL Est Cr Clr Drug Dosing 25.97 mL/min Estimated GFR (MDRD) 24 L (>60) Glucose 121 H (74-106) mg/dL Calcium 8.2 L (8.5-10.1) mg/dL Julio César Results Last 24 Hours: Microbiology 08/31/17 07:36 Gram Stain - Final Sputum - Expectorated Respiratory Culture - Final NORMAL RESPIRATORY WANDA 2 DAYS Med Orders - Current: Current Medications Acetaminophen (Tylenol) 650 mg PO Q4H PRN PRN Reason: Pain (Mild 1-3)/fever Albuterol (Proventil Neb Soln) 2.5 mg NEB Q4H PRN PRN Reason: Shortness Of Breath/wheezing Last Admin: 09/02/17 02:42 Dose: 2.5 mg Albuterol/Ipratropium (Duoneb 3.0-0.5 Mg/3 Ml) 3 ml NEB QIDRT [facility] Last Admin: 09/02/17 06:56 Dose: 3 ml Amlodipine Besylate (Norvasc) 10 mg PO DAILY [facility] Last Admin: 09/02/17 08:34 Dose: 10 mg Aspirin (Halfprin) 81 mg PO DAILY [facility] Last Admin: 09/02/17 08:33 Dose: 81 mg Azithromycin (Zithromax) 500 mg PO Q24H [facility] Last Admin: 09/01/17 17:27 Dose: 500 mg Benzonatate (Tessalon Perles) 100 mg PO TID PRN PRN Reason: Cough Last Admin: 09/02/17 02:42 Dose: 100 mg Carvedilol (Coreg) 12.5 mg PO BIDMEALS [facility] Last Admin: 09/02/17 08:31 Dose: 12.5 mg Chlorthalidone (Chlorthalidone) 25 mg PO DAILY [facility] Last Admin: 09/02/17 08:34 Dose: 25 mg Clonidine HCl (Catapres) 0.2 mg PO BID [facility] Last Admin: 09/02/17 08:44 Dose: 0.2 mg Clopidogrel Bisulfate (Plavix) 75 mg PO DAILY [facility] Last Admin: 09/02/17 08:35 Dose: 75 mg Hydralazine HCl (Apresoline) 100 mg PO TID [facility] Last Admin: 09/02/17 08:32 Dose: 100 mg Ceftriaxone Sodium 2 gm/ (Sodium Chloride) 50 mls @ 100 mls/hr IV Q24H [facility] Last Admin: 09/01/17 16:55 Dose: 100 mls/hr Ondansetron HCl (Zofran Odt) 4 mg PO Q6H PRN PRN Reason: Nausea able to take PO Oseltamivir Phosphate (Tamiflu) 30 mg PO DAILY [facility] Last Admin: 09/02/17 08:35 Dose: 30 mg Polyethylene Glycol (Miralax) 17 gm PO DAILY PRN PRN Reason: Constipation Prednisone (Prednisone) 20 mg PO BIDAC [facility] Last Admin: 09/02/17 08:30 Dose: 20 mg Senna/Docusate Sodium (Senna Plus) 1 tab PO BID PRN PRN Reason: Constipation Sodium Chloride (Saline Flush) 10 ml FLUSH ASDIRECTED PRN PRN Reason: Keep Vein Open Last Admin: 08/30/17 16:24 Dose: 10 ml Discontinued Medications Albuterol/Ipratropium (Duoneb 3.0-0.5 Mg/3 Ml) 3 ml NEB ONETIME ONE Stop: 08/30/17 15:10 Last Admin: 08/30/17 15:27 Dose: 3 ml Amlodipine Besylate (Norvasc) 5 mg PO DAILY [facility] Amlodipine Besylate (Norvasc) 5 mg PO ONETIME ONE Stop: 08/30/17 21:20 Last Admin: 08/30/17 21:57 Dose: 5 mg Hydralazine HCl (Apresoline) 50 mg PO TID [facility] Last Admin: 08/31/17 08:17 Dose: 50 mg Hydralazine HCl (Apresoline) 75 mg PO TID [facility] Last Admin: 09/01/17 14:27 Dose: 75 mg Sodium Chloride (Normal Saline) 1,000 mls @ 250 mls/hr IV ASDIRECTED [facility] Stop: 09/01/17 12:46 Last Admin: 09/01/17 09:29 Dose: 250 mls/hr Methylprednisolone Sodium Succinate (Solu-Medrol) 125 mg IVPUSH ONETIME ONE Stop: 08/30/17 17:06 Last Admin: 08/30/17 19:03 Dose: 125 mg Methylprednisolone Sodium Succinate (Solu-Medrol) 62.5 mg IVPUSH Q8H [facility] Last Admin: 08/31/17 01:36 Dose: 62.5 mg Oseltamivir Phosphate (Tamiflu) 30 mg PO ONETIME ONE Stop: 08/30/17 17:16 Last Admin: 08/30/17 19:04 Dose: 30 mg Oseltamivir Phosphate (Tamiflu) 30 mg PO BID [facility] Oseltamivir Phosphate (Tamiflu) 30 mg PO BID [facility] - Exam Quality Assessment: No: Supplemental Oxygen General: Alert, Oriented, Cooperative, No Acute Distress Neck: Supple Lungs: Normal Respiratory Effort, Rhonchi (diffuse end exp ronchi), Wheezing ( mild diffuse end exp) Cardiovascular: Regular Rate, Regular Rhythm GI/Abdominal Exam: No Distention Extremities: Pedal Edema Skin: Warm, Dry Psy/Mental Status: Alert, Normal Affect - Problem List & Annotations (1) Bilateral pneumonia SNOMED Code(s): 399129872 Code(s): J18.9 - PNEUMONIA, UNSPECIFIED ORGANISM Status: Acute Current Visit: Yes Qualifiers: Pneumonia type: due to unspecified organism Lung location: unspecified part of lung Qualified Code(s): J18.9 - Pneumonia, unspecified organism (2) Acute exacerbation of chronic obstructive pulmonary disease (COPD) SNOMED Code(s): 311031879 Code(s): J44.1 - CHRONIC OBSTRUCTIVE PULMONARY DISEASE W (ACUTE) EXACERBATION Status: Acute Current Visit: Yes (3) Stage III chronic kidney disease SNOMED Code(s): 612915933 Code(s): N18.3 - CHRONIC KIDNEY DISEASE, STAGE 3 (MODERATE) Status: Chronic Current Visit: Yes (4) Hyperkalemia SNOMED Code(s): 83080063 Code(s): E87.5 - HYPERKALEMIA Status: Acute Current Visit: Yes (5) Elevated troponin SNOMED Code(s): 083807558, 066350551 Code(s): R74.8 - ABNORMAL LEVELS OF OTHER SERUM ENZYMES Status: Acute Current Visit: Yes - Problem List Review Problem List Initiated/Reviewed/Updated: Yes - My Orders Last 24 Hours: My Active Orders 09/01/17 21:00 hydrALAZINE [Apresoline] 100 mg PO TID 09/02/17 09:00 cloNIDine [Catapres] 0.2 mg PO BID 09/03/17 05:00 BASIC METABOLIC PANEL,BMP [CHEM] Timed - Plan Plan:: ASSESSMENT AND PLAN - Bilateral pneumonia with acute exacerbation of COPD - white blood cell count is normal, unclear if viral or bacterial. Not hypoxic but coughing a fair amount. Sputum culture with normal respiratory wanda. -Tamiflu -Ceftriaxone and azithromycin -Continue prednisone -Supplement oxygen if needed -Scheduled and as needed nebulizers Elevated troponin - no recent episodes of chest pain, EKG is normal. Level has continued to trend down. Suspect demand ischemia in the setting of respiratory infection. -Cardiac monitoring Hyperkalemia - potassium level now back in the normal range and stable. -Hold lisinopril Accelerated hypertension - blood pressure remained elevated yesterday despite trial of hydration and increase in his hydralazine. -Continue beta nguyen, hydralazine and chlorthalidone -Continue amlodipine 10 mg daily -Lisinopril is on hold as above -Trial of clonidine this morning Acute on chronic kidney injury - GFR slightly better today but BUN is a little higher. Blood pressure remains elevated. -Blood pressure management as above -Repeat labs in the morning Maintenance issues - - DVT prophylaxis - BRISEYDA stockings - GI prophylaxis - not indicated - Nutrition - regular diet Disposition - anticipate discharge home after the hospital stay, hopefully in the next day or 2 Trenton Stringer M.D.
[2017-09-02] MEDS: Codeine/guaiFENesin 100mg-10 MG/5 ML Syrup 10 ML Cup PO PRN ×3 (09:44→17:54)
[2017-09-02] MEDS: cefTRIAXone 2 GM in Sodium Chloride 0.9% 50 ML IV SCH (16:31)
[2017-09-02] MEDS: Azithromycin 250 MG Tab PO SCH (17:16)
[2017-09-03] MEDS: Albuterol/Ipratropium 3.0-0.5 MG/3 ML Neb Soln NEB SCH ×4 (07:05→19:59)
[2017-09-03] MEDS: Carvedilol 12.5 MG Tab PO SCH ×2 (08:21→16:27)
[2017-09-03] MEDS: predniSONE 20 MG Tab PO SCH ×2 (08:21→16:27)
[2017-09-03] MEDS: hydrALAZINE 25 MG Tab PO SCH ×3 (08:22→20:00)
[2017-09-03] MEDS: amLODIPine 10 MG Tab PO SCH (08:24)
[2017-09-03] MEDS: Aspirin 81 MG Tab.EC PO SCH (08:24)
[2017-09-03] MEDS: Clopidogrel 75 MG Tab PO SCH (08:25)
[2017-09-03] MEDS: Oseltamivir 30 MG Cap PO SCH (08:26)
[2017-09-03] MEDS: cloNIDine 0.1 MG Tab PO SCH ×2 (08:29→20:00)
--- NOTE | 2017-09-03 08:43 | PCM.PN ---
- General Info Date of Service: 09/03/17 Functional Status: Reports: Pain Controlled, Tolerating Diet, Ambulating - Review of Systems General: Denies: Fever Pulmonary: Reports: Shortness of Breath Cardiovascular: Denies: Chest Pain Systems Review Comment:: No acute events overnight. Blood pressure has responded well to the clonidine. Cough has improved and shortness of breath is better today. He did have some swelling of his eyes this morning. Lower extremity edema is stable but still significant. No complaints of chest pain. Appetite has been good and energy slowly improving. - Patient Data Vitals - Most Recent: Last Vital Signs Temp 36.3 C 09/03/17 04:00 Pulse 54 L 09/03/17 08:21 Resp 14 09/03/17 06:00 BP 164/65 H 09/03/17 08:29 Pulse Ox 94 L 09/03/17 06:00 Weight - Most Recent: 108.227 kg I&O - Last 24 Hours: Intake & Output 09/02/17 09/03/17 09/03/17 22:59 06:59 14:59 Intake Total 500 400 Balance 500 400 Lab Results Last 24 Hours: Laboratory Results - last 24 hr 09/03/17 Range/Units 05:03 Sodium 136 L (140-148) mmol/L Potassium 5.3 H (3.6-5.2) mmol/L Chloride 108 (100-108) mmol/L Carbon Dioxide 19 L (21-32) mmol/L Anion Gap 14.3 H (5.0-14.0) mmol/L BUN 67 H (7-18) mg/dL Creatinine 2.6 H (0.8-1.3) mg/dL Est Cr Clr Drug Dosing 25.97 mL/min Estimated GFR (MDRD) 24 L (>60) Glucose 114 H (74-106) mg/dL Calcium 8.1 L (8.5-10.1) mg/dL Julio César Results Last 24 Hours: Microbiology 08/31/17 07:36 Gram Stain - Final Sputum - Expectorated Respiratory Culture - Final NORMAL RESPIRATORY JOSIE 2 DAYS Med Orders - Current: Current Medications Acetaminophen (Tylenol) 650 mg PO Q4H PRN PRN Reason: Pain (Mild 1-3)/fever Albuterol (Proventil Neb Soln) 2.5 mg NEB Q4H PRN PRN Reason: Shortness Of Breath/wheezing Last Admin: 02/16/18 02:42 Dose: 2.5 mg Albuterol/Ipratropium (Duoneb 3.0-0.5 Mg/3 Ml) 3 ml NEB QIDRT [facility] Last Admin: 09/03/17 07:05 Dose: 3 ml Amlodipine Besylate (Norvasc) 10 mg PO DAILY [facility] Last Admin: 09/03/17 08:24 Dose: 10 mg Aspirin (Halfprin) 81 mg PO DAILY [facility] Last Admin: 09/03/17 08:24 Dose: 81 mg Azithromycin (Zithromax) 500 mg PO Q24H [facility] Last Admin: 09/02/17 17:16 Dose: 500 mg Benzonatate (Tessalon Perles) 100 mg PO TID PRN PRN Reason: Cough Last Admin: 09/02/17 17:53 Dose: 100 mg Carvedilol (Coreg) 12.5 mg PO BIDMEALS [facility] Last Admin: 09/03/17 08:21 Dose: 12.5 mg Clonidine HCl (Catapres) 0.2 mg PO BID [facility] Last Admin: 09/03/17 08:29 Dose: 0.2 mg Clopidogrel Bisulfate (Plavix) 75 mg PO DAILY [facility] Last Admin: 09/03/17 08:25 Dose: 75 mg Guaifenesin/Codeine Phosphate (Robitussin Ac) 10 ml PO Q4H PRN PRN Reason: Cough Last Admin: 09/02/17 17:54 Dose: 10 ml Hydralazine HCl (Apresoline) 100 mg PO TID [facility] Last Admin: 09/03/17 08:22 Dose: 100 mg Ceftriaxone Sodium 2 gm/ (Sodium Chloride) 50 mls @ 100 mls/hr IV Q24H [facility] Last Admin: 09/02/17 16:31 Dose: 100 mls/hr Ondansetron HCl (Zofran Odt) 4 mg PO Q6H PRN PRN Reason: Nausea able to take PO Oseltamivir Phosphate (Tamiflu) 30 mg PO DAILY [facility] Last Admin: 09/03/17 08:26 Dose: 30 mg Polyethylene Glycol (Miralax) 17 gm PO DAILY PRN PRN Reason: Constipation Prednisone (Prednisone) 20 mg PO BIDAC [facility] Stop: 09/03/17 20:00 Last Admin: 09/03/17 08:21 Dose: 20 mg Senna/Docusate Sodium (Senna Plus) 1 tab PO BID PRN PRN Reason: Constipation Sodium Chloride (Saline Flush) 10 ml FLUSH ASDIRECTED PRN PRN Reason: Keep Vein Open Last Admin: 08/30/17 16:24 Dose: 10 ml Discontinued Medications Albuterol/Ipratropium (Duoneb 3.0-0.5 Mg/3 Ml) 3 ml NEB ONETIME ONE Stop: 08/30/17 15:10 Last Admin: 08/30/17 15:27 Dose: 3 ml Amlodipine Besylate (Norvasc) 5 mg PO DAILY [facility] Amlodipine Besylate (Norvasc) 5 mg PO ONETIME ONE Stop: 08/30/17 21:20 Last Admin: 08/30/17 21:57 Dose: 5 mg Chlorthalidone (Chlorthalidone) 25 mg PO DAILY [facility] Last Admin: 09/02/17 08:34 Dose: 25 mg Hydralazine HCl (Apresoline) 50 mg PO TID [facility] Last Admin: 08/31/17 08:17 Dose: 50 mg Hydralazine HCl (Apresoline) 75 mg PO TID [facility] Last Admin: 09/01/17 14:27 Dose: 75 mg Sodium Chloride (Normal Saline) 1,000 mls @ 250 mls/hr IV ASDIRECTED [facility] Stop: 09/01/17 12:46 Last Admin: 09/01/17 09:29 Dose: 250 mls/hr Methylprednisolone Sodium Succinate (Solu-Medrol) 125 mg IVPUSH ONETIME ONE Stop: 08/30/17 17:06 Last Admin: 08/30/17 19:03 Dose: 125 mg Methylprednisolone Sodium Succinate (Solu-Medrol) 62.5 mg IVPUSH Q8H [facility] Last Admin: 08/31/17 01:36 Dose: 62.5 mg Oseltamivir Phosphate (Tamiflu) 30 mg PO ONETIME ONE Stop: 08/30/17 17:16 Last Admin: 08/30/17 19:04 Dose: 30 mg Oseltamivir Phosphate (Tamiflu) 30 mg PO BID [facility] Oseltamivir Phosphate (Tamiflu) 30 mg PO BID [facility] - Exam Quality Assessment: No: Supplemental Oxygen General: Alert, Oriented, Cooperative, No Acute Distress Neck: Supple Lungs: Normal Respiratory Effort, Rhonchi (rare end exp diffusely) Cardiovascular: Regular Rate, Regular Rhythm GI/Abdominal Exam: Soft, No Distention Extremities: Pedal Edema (pitting edema to above the knee bilaterally ). No: Increased Warmth Skin: Warm, Dry Psy/Mental Status: Alert, Normal Affect - Problem List & Annotations (1) Bilateral pneumonia SNOMED Code(s): 990927937 Code(s): J18.9 - PNEUMONIA, UNSPECIFIED ORGANISM Status: Acute Current Visit: Yes Qualifiers: Pneumonia type: due to unspecified organism Lung location: unspecified part of lung Qualified Code(s): J18.9 - Pneumonia, unspecified organism (2) Acute exacerbation of chronic obstructive pulmonary disease (COPD) SNOMED Code(s): 581683220 Code(s): J44.1 - CHRONIC OBSTRUCTIVE PULMONARY DISEASE W (ACUTE) EXACERBATION Status: Acute Current Visit: Yes (3) Stage III chronic kidney disease SNOMED Code(s): 328002670 Code(s): N18.3 - CHRONIC KIDNEY DISEASE, STAGE 3 (MODERATE) Status: Chronic Current Visit: Yes (4) Hyperkalemia SNOMED Code(s): 13082810 Code(s): E87.5 - HYPERKALEMIA Status: Acute Current Visit: Yes (5) Elevated troponin SNOMED Code(s): 283580842, 763144531 Code(s): R74.8 - ABNORMAL LEVELS OF OTHER SERUM ENZYMES Status: Acute Current Visit: Yes - Problem List Review Problem List Initiated/Reviewed/Updated: Yes - My Orders Last 24 Hours: My Active Orders 09/02/17 09:00 cloNIDine [Catapres] 0.2 mg PO BID 09/02/17 09:10 Codeine/guaiFENesin [Robitussin AC] 10 ml PO Q4H PRN 09/02/17 11:09 RT Acapella [RESPCARE] Routine 09/03/17 08:39 UA W/MICROSCOPIC [URIN] Routine 09/03/17 08:41 Transfer Patient (Change bed) [ADT] Routine Discontinue Telemetry Monitoring [Cardiac Monitoring Discontinue] [RC] Click to Edit 09/04/17 05:00 BASIC METABOLIC PANEL,BMP [CHEM] Timed CBC W/O DIFF,HEMOGRAM [HEME] Timed (1) MAGNESIUM [CHEM] Timed TSH ULTRASENSITIVE [CHEM] Timed - Plan Plan:: ASSESSMENT AND PLAN - Bilateral pneumonia with acute exacerbation of COPD - white blood cell count is normal, unclear if viral or bacterial. Slowly improving with current therapy. -Tamiflu -Transition to cefdinir and continue azithromycin -Continue prednisone through the day today and then discontinue -Supplement oxygen if needed -Scheduled and as needed nebulizers Accelerated hypertension - blood pressure better with clonidine but kidney function not improved as I had hoped. With his significant edema I checked a urinalysis which revealed significant proteinuria but no hematuria. -Continue beta nguyen, hydralazine and calcium channel nguyen -Check urine protein to creatinine ratio to assess for nephrotic syndrome -Lisinopril is on hold as above but may need to be restarted if there is significant elevation of the protein to creatinine ratio -Continue clonidine Elevated troponin - no recent episodes of chest pain, EKG is normal. Level has continued to trend down. Suspect demand ischemia in the setting of respiratory infection. -Cardiac monitoring Hyperkalemia - potassium level now back in the normal range and stable. -Hold lisinopril Acute on chronic kidney injury - GFR slightly better today but BUN is a little higher. Blood pressure better but kidney function not much improved. I'm a little concerned there may be contribution from the chlorthalidone. -Hold chlorthalidone -Blood pressure management as above -Repeat labs in the morning Maintenance issues - - DVT prophylaxis - BRISEYDA stockings - GI prophylaxis - not indicated - Nutrition - regular diet Disposition - anticipate discharge home after the hospital stay, hopefully in the next day or 2 Trenton Stringer M.D.
[2017-09-03] MEDS: Codeine/guaiFENesin 100mg-10 MG/5 ML Syrup 10 ML Cup PO PRN (13:11)
[2017-09-03] MEDS: cefTRIAXone 2 GM in Sodium Chloride 0.9% 50 ML IV SCH (16:27)
[2017-09-03] MEDS: Azithromycin 250 MG Tab PO SCH (17:19)
[2017-09-04] MEDS: Albuterol/Ipratropium 3.0-0.5 MG/3 ML Neb Soln NEB SCH (07:20)
[2017-09-04] MEDS: Clopidogrel 75 MG Tab PO SCH (08:06)
[2017-09-04] MEDS: Oseltamivir 30 MG Cap PO SCH (08:06)
[2017-09-04] MEDS: Aspirin 81 MG Tab.EC PO SCH (08:06)
[2017-09-04] MEDS: cloNIDine 0.1 MG Tab PO SCH (08:06)
[2017-09-04] MEDS: Carvedilol 12.5 MG Tab PO SCH (08:08)
[2017-09-04 08:09] VITALS: BP 173/76
[2017-09-04] MEDS: amLODIPine 10 MG Tab PO SCH (08:09)
[2017-09-04] MEDS: hydrALAZINE 25 MG Tab PO SCH (08:09)
--- NOTE | 2017-09-04 10:14 | PCM.DCSUM1 ---
Discharge Summary - Hospital Course Brief History: 72-year-old male with history of vascular disease, hypertension and tobacco dependence with COPD who presented to the clinic with cough, shortness of breath and was admitted for management of infection versus congestive heart failure. - Discharge Data Discharge Date: 09/04/17 Discharge Disposition: Home, Self-Care 01 Condition: Fair - Discharge Diagnosis/Problem(s) (1) Bilateral pneumonia SNOMED Code(s): 937201308 ICD Code: J18.9 - PNEUMONIA, UNSPECIFIED ORGANISM Status: Acute Qualifiers: Pneumonia type: due to unspecified organism Lung location: unspecified part of lung Qualified Code(s): J18.9 - Pneumonia, unspecified organism (2) Acute exacerbation of chronic obstructive pulmonary disease (COPD) SNOMED Code(s): 827817640 ICD Code: J44.1 - CHRONIC OBSTRUCTIVE PULMONARY DISEASE W (ACUTE) EXACERBATION Status: Acute (3) Acute on chronic renal failure SNOMED Code(s): 989327368 ICD Code: N17.9 - ACUTE KIDNEY FAILURE, UNSPECIFIED; N18.9 - CHRONIC KIDNEY DISEASE, UNSPECIFIED Status: Acute Qualifiers: Acute renal failure type: unspecified Chronic kidney disease stage: stage 3 (moderate) Qualified Code(s): N17.9 - Acute kidney failure, unspecified; N18.3 - Chronic kidney disease, stage 3 (moderate); N18.3 - Chronic kidney disease, stage 3 (moderate) (4) Elevated troponin SNOMED Code(s): 980679760, 359090599 ICD Code: R74.8 - ABNORMAL LEVELS OF OTHER SERUM ENZYMES Status: Acute (5) Hyperkalemia SNOMED Code(s): 99682731 ICD Code: E87.5 - HYPERKALEMIA Status: Acute (6) Accelerated hypertension SNOMED Code(s): 12027379 ICD Code: I10 - ESSENTIAL (PRIMARY) HYPERTENSION Status: Acute (7) Nephrotic range proteinuria SNOMED Code(s): 710100292 ICD Code: R80.9 - PROTEINURIA, UNSPECIFIED Status: Acute - Patient Summary/Data Hospital Course: Tab presented initially to the clinic for evaluation of several days of shortness of breath. Workup in the clinic was concerning for either congestive heart failure or possibly a bilateral pneumonia. Given his tachypnea and concern for a fragile respiratory status he was sent to the emergency room. Workup in the emergency room revealed acute on chronic kidney injury as well as a troponin of 0.47. Given his kidney function decline and a bedside ultrasound that showed good cardiac function with no strong evidence for congestive heart failure I felt that this was a respiratory infection as the primary problem and the elevated troponin was a demand ischemia in the setting of tachypnea and some hypoxia with impaired renal clearance of the troponin. He was admitted to the intensive care unit. We did not heparinize him. Started him on ceftriaxone and azithromycin to cover the bacterial side of pneumonia but he did also receive Tamiflu with concern for the infection though his testing was negative. Over the next couple of days he did show slow but steady clinical improvement. He was never hypoxic during the hospital stay but his symptoms and tachypnea both improved. His troponin level trended down throughout the course of the hospital stay. From a respiratory standpoint he has done well. He has completed his Tamiflu and his steroid burst. He will need a few more days of cefdinir after hospital discharge but has completed his 5 day course of azithromycin. Respiratory examination has steadily improved throughout the hospital stay. Also during the hospital stay he was noted to have persistent elevation of his blood pressures with systolic pressures around 200. He also had the acute on chronic kidney injury issues as well as mild hyperkalemia. I was initially concern for medication adverse effect with concern for lisinopril given his hyperkalemia and worsened renal failure. This medication was held and his blood pressure remained stable but kidney function did not improve much. Did increase the hydralazine as well as his amlodipine for better blood pressure control with only mild improvements. Eventually we did start him on clonidine with a significant improvement in his blood pressure after that time. With lack of improvement in his blood pressure I did elect to discontinue the chlorthalidone as well. Kidney function has remained stable but not improved even after this medication was discontinued. The patient reported a history of intermittent periorbital edema in addition to his chronic lower extremity edema which raised concern for a nephrotic type syndrome. Urinalysis revealed significant proteinuria and a spot protein to creatinine ratio revealed a level of 6700. I suspect the edema and accelerated hypertension are related to potentially nephrotic syndrome given his nephrotic range proteinuria. He reports a long- standing symptoms and his blood pressures are stable as is his renal function. Given his improvement from the respiratory infection we have elected to discharge him home. He will be following up with nephrology as soon as an appointment can be made. A referral has been placed to [facility] in [place]. A list of medication changes can be found in his medication section of the discharge instructions. I did not start him back on his lisinopril because of his hyperkalemia. - Patient Instructions Diet: Heart Healthy Diet Activity: As Tolerated Driving: May Drive Today Showering/Bathing: May Shower Notify Provider of: Fever, Increased Pain, Nausea and/or Vomiting Other/Special Instructions: 1. You were in the hospital for management of bilateral pneumonia. It is not entirely clear if this was viral or bacterial. You have completed a course of Tamiflu. I recommend 3 additional days of antibiotic therapy with cefdinir. Your next dose due tonight. 2. During the hospital stay we noticed that your troponin level (marker for irritation to the heart muscle) was elevated. I suspect this was related to a demand ischemia because of the respiratory infection. Further workup could be considered if you have episodes of chest pain or you become short of breath with activity. 3. Also noted during the hospital stay was difficult to control blood pressure. We have been able to control your pressure better utilizing your home dose of carvedilol, and increased dose of amlodipine to 10 mg daily as well as an increased dose of hydralazine to 100 mg 3 times a day. We also added clonidine 0.2 mg taken twice daily. You should stop taking both chlorthalidone and lisinopril at this time. You may need to go back on the lisinopril to help reduce the protein in your urine. I have placed a referral to a wireless communications engineer so you can follow-up and have the protein in your urine evaluated by a kidney specialist. 4. Please seek medical attention if you develop fever greater than 101, have severe shortness of breath, if you develop chest pain or if you develop blurry vision, severe headache or feel like you are going to pass out. - Discharge Plan Prescriptions/Med Rec: amLODIPine Besylate [Amlodipine Besylate] 10 mg PO DAILY #30 tablet Cefdinir 300 mg PO BID #5 capsule cloNIDine [Catapres] 0.2 mg PO Q12HR #60 tab hydrALAZINE [Apresoline] 100 mg PO TID #90 tab Home Medications: Home Meds Aspirin [Halfprin] 81 mg PO DAILY 08/02/14 [History] Clopidogrel Bisulfate [Clopidogrel] 75 mg PO DAILY 08/02/14 [History] Carvedilol 12.5 mg PO BID 08/30/17 [History] Cefdinir 300 mg PO BID #5 capsule 09/04/17 [Rx] amLODIPine Besylate [Amlodipine Besylate] 10 mg PO DAILY #30 tablet 09/04/17 [Rx ] cloNIDine [Catapres] 0.2 mg PO Q12HR #60 tab 09/04/17 [Rx] hydrALAZINE [Apresoline] 100 mg PO TID #90 tab 09/04/17 [Rx] Patient Handouts: Cefdinir capsules, Incentive Spirometer, Community-Acquired Pneumonia, Adult Referrals: Osito Love MD [Consulting Physician] - (I have placed a referral, they will contact you to schedule an appointment. ) - Discharge Summary/Plan Comment DC Time >30 min.: Yes (40 - setting up nephrology f/u ) - Patient Data Vitals - Most Recent: Last Vital Signs Temp 36.6 C 09/04/17 05:35 Pulse 60 09/04/17 08:08 Resp 18 09/04/17 05:35 BP 173/76 H 09/04/17 08:09 Pulse Ox 95 09/04/17 05:35 Weight - Most Recent: 108.227 kg I&O - Last 24 hours: Intake & Output 09/03/17 09/04/17 09/04/17 22:59 06:59 14:59 Intake Total 1300 1000 1470 Balance 1300 1000 1470 Lab Results - Last 24 hrs: Laboratory Results - last 24 hr 09/03/17 09/04/17 09/04/17 Range/Units 13:56 04:33 04:33 WBC 8.7 (4.5-11.0) K/uL RBC 3.58 L (4.30-5.90) M/uL Hgb 11.0 L (12.0-15.0) g/dL Hct 34.2 L (40.0-54.0) % MCV 96 (80-98) fL MCH 31 (27-31) pg MCHC 32 (32-36) % Plt Count 164 (150-400) K/uL Sodium 133 L (140-148) mmol/L Potassium 5.4 H (3.6-5.2) mmol/L Chloride 105 (100-108) mmol/L Carbon Dioxide 19 L (21-32) mmol/L Anion Gap 14.4 H (5.0-14.0) mmol/L BUN 73 H (7-18) mg/dL Creatinine 2.6 H (0.8-1.3) mg/dL Est Cr Clr Drug Dosing 25.97 mL/min Estimated GFR (MDRD) 24 L (>60) Glucose 130 H (74-106) mg/dL Calcium 8.0 L (8.5-10.1) mg/dL Magnesium 2.1 (1.8-2.4) mg/dL TSH, Ultra Sensitive 0.981 (0.358-3.740) uIU/mL Ur Random Creatinine 72.7 (20.0-370.0) mg/dL U Random Total Protein 491.8 H (6.0-11.9) mg/dL Protein/Creatinin Ratio 6764.8 H (22.0-128.0) mg/g Med Orders - Current: Current Medications Acetaminophen (Tylenol) 650 mg PO Q4H PRN PRN Reason: Pain (Mild 1-3)/fever Albuterol (Proventil Neb Soln) 2.5 mg NEB Q4H PRN PRN Reason: Shortness Of Breath/wheezing Last Admin: 09/02/17 02:42 Dose: 2.5 mg Albuterol/Ipratropium (Duoneb 3.0-0.5 Mg/3 Ml) 3 ml NEB QIDRT [facility] Last Admin: 09/04/17 07:20 Dose: 3 ml Amlodipine Besylate (Norvasc) 10 mg PO DAILY [facility] Last Admin: 09/04/17 08:09 Dose: 10 mg Aspirin (Halfprin) 81 mg PO DAILY [facility] Last Admin: 09/04/17 08:06 Dose: 81 mg Azithromycin (Zithromax) 500 mg PO Q24H [facility] Last Admin: 09/03/17 17:19 Dose: 500 mg Benzonatate (Tessalon Perles) 100 mg PO TID PRN PRN Reason: Cough Last Admin: 09/02/17 17:53 Dose: 100 mg Carvedilol (Coreg) 12.5 mg PO BIDMEALS [facility] Last Admin: 09/04/17 08:08 Dose: 12.5 mg Clonidine HCl (Catapres) 0.2 mg PO BID [facility] Last Admin: 09/04/17 08:06 Dose: 0.2 mg Clopidogrel Bisulfate (Plavix) 75 mg PO DAILY [facility] Last Admin: 09/04/17 08:06 Dose: 75 mg Guaifenesin/Codeine Phosphate (Robitussin Ac) 10 ml PO Q4H PRN PRN Reason: Cough Last Admin: 09/03/17 13:11 Dose: 10 ml Hydralazine HCl (Apresoline) 100 mg PO TID [facility] Last Admin: 09/04/17 08:09 Dose: 100 mg Ceftriaxone Sodium 2 gm/ (Sodium Chloride) 50 mls @ 100 mls/hr IV Q24H [facility] Last Admin: 09/03/17 16:27 Dose: 100 mls/hr Ondansetron HCl (Zofran Odt) 4 mg PO Q6H PRN PRN Reason: Nausea able to take PO Oseltamivir Phosphate (Tamiflu) 30 mg PO DAILY [facility] Last Admin: 09/04/17 08:06 Dose: 30 mg Polyethylene Glycol (Miralax) 17 gm PO DAILY PRN PRN Reason: Constipation Senna/Docusate Sodium (Senna Plus) 1 tab PO BID PRN PRN Reason: Constipation Sodium Chloride (Saline Flush) 10 ml FLUSH ASDIRECTED PRN PRN Reason: Keep Vein Open Last Admin: 08/30/17 16:24 Dose: 10 ml Discontinued Medications Albuterol/Ipratropium (Duoneb 3.0-0.5 Mg/3 Ml) 3 ml NEB ONETIME ONE Stop: 08/30/17 15:10 Last Admin: 08/30/17 15:27 Dose: 3 ml Amlodipine Besylate (Norvasc) 5 mg PO DAILY [facility] Amlodipine Besylate (Norvasc) 5 mg PO ONETIME ONE Stop: 08/30/17 21:20 Last Admin: 08/30/17 21:57 Dose: 5 mg Chlorthalidone (Chlorthalidone) 25 mg PO DAILY [facility] Last Admin: 09/02/17 08:34 Dose: 25 mg Hydralazine HCl (Apresoline) 50 mg PO TID [facility] Last Admin: 08/31/17 08:17 Dose: 50 mg Hydralazine HCl (Apresoline) 75 mg PO TID [facility] Last Admin: 09/01/17 14:27 Dose: 75 mg Sodium Chloride (Normal Saline) 1,000 mls @ 250 mls/hr IV ASDIRECTED [facility] Stop: 09/01/17 12:46 Last Admin: 09/01/17 09:29 Dose: 250 mls/hr Methylprednisolone Sodium Succinate (Solu-Medrol) 125 mg IVPUSH ONETIME ONE Stop: 08/30/17 17:06 Last Admin: 08/30/17 19:03 Dose: 125 mg Methylprednisolone Sodium Succinate (Solu-Medrol) 62.5 mg IVPUSH Q8H [facility] Last Admin: 08/31/17 01:36 Dose: 62.5 mg Oseltamivir Phosphate (Tamiflu) 30 mg PO ONETIME ONE Stop: 08/30/17 17:16 Last Admin: 08/30/17 19:04 Dose: 30 mg Oseltamivir Phosphate (Tamiflu) 30 mg PO BID RAN Oseltamivir Phosphate (Tamiflu) 30 mg PO BID RAN Prednisone (Prednisone) 20 mg PO BIDAC [facility] Stop: 09/03/17 20:00 Last Admin: 09/03/17 16:27 Dose: 20 mg - Exam Quality Assessment: Denies: Supplemental Oxygen General: Reports: Alert, Oriented, Cooperative, No Acute Distress HEENT: Reports: Other (mild periorbital edema R>L) Neck: Reports: Supple Lungs: Reports: Normal Respiratory Effort Cardiovascular: Reports: Regular Rate, Regular Rhythm GI/Abdominal Exam: Soft, No Distention Extremities: Pedal Edema Psy/Mental Status: Reports: Alert, Normal Affect *Q Meaningful Use (DIS) - VTE *Q VTE Criteria *Q: - Stroke *Q Stroke Criteria *Q: - AMI *Q AMI Criteria *Q:
== END 2017-09-04 10:45 | disposition home or self-care (01) | DRG 190 ==
LOC: JP.ED 14:16 → JP.ICU 17:07 → JP.MS 09-03 13:00
PROVIDERS: ADMIT Internal Medicine; ATTEND Internal Medicine
DX: J44.0 Chronic obstructive pulmonary disease with (acute) lower respiratory infection (principal); J18.9 Pneumonia, unspecified organism; N17.9 Acute kidney failure, unspecified; I24.8 Other forms of acute ischemic heart disease; J44.1 Chronic obstructive pulmonary disease with (acute) exacerbation; E87.5 Hyperkalemia; F17.210 Nicotine dependence, cigarettes, uncomplicated; R74.8 Abnormal levels of other serum enzymes; R06.02 Shortness of breath; R05 Cough; R53.1 Weakness; I12.9 Hypertensive chronic kidney disease with stage 1 through stage 4 chronic kidney disease, or unspecified chronic kidney disease; N18.3 Chronic kidney disease, stage 3 (moderate); R60.9 Edema, unspecified; Z86.73 Personal history of transient ischemic attack (TIA), and cerebral infarction without residual deficits; R80.9 Proteinuria, unspecified; Z95.5 Presence of coronary angioplasty implant and graft; Z79.82 Long term (current) use of aspirin
CPT/HCPCS: 36415; 80053; 84484; 85025; 87804 ×2; 93005; 96372; 99285; J7050; J7620; 76770; 76770-26; 80048; 81001; 82570; 83735; 84156; 84443; 85027; 87070; 87205; 93306; 94640; 94667; A9270-GY; J0696; J2930; J7040

== ENCOUNTER 2018-08-04 09:36 | Emergency (ER) | payer MEDICARE, OTHER ==
[2018-08-04] MEDS ORDERED: Nitroglycerin 0.4 MG Tab.SL SL ONE (10:32)
--- NOTE | 2018-08-04 10:39 | EDM.PDOC ---
ED HPI GENERAL MEDICAL PROBLEM - General Chief Complaint: Respiratory Problem Stated Complaint: SOB Time Seen by Provider: 08/04/18 10:25 Source of Information: Reports: Patient, Family, RN Notes Reviewed History Limitations: Reports: No Limitations - History of Present Illness INITIAL COMMENTS - FREE TEXT/NARRATIVE: 73-year-old gentleman presents to the emergency department today complaint of shortness of breath,, he states is been feeling more short of breath over the course of the week has progressively gotten worse he also complains of chest heaviness he denies any nausea vomiting no diaphoresis does have a history of COPD as well as coronary artery disease and stage IV chronic kidney disease denies any weight gain or sputum production no fevers - Related Data Allergies Allergy/AdvReac Type Severity Reaction Status Date / Time No Known Allergies Allergy Verified 08/04/18 09:56 Home Meds: Home Meds Aspirin [Halfprin] 81 mg PO DAILY 08/02/14 [History] Clopidogrel Bisulfate [Clopidogrel] 75 mg PO DAILY 08/02/14 [History] Carvedilol 12.5 mg PO BID 08/30/17 [History] hydrALAZINE [Apresoline] 100 mg PO TID #90 tab 09/04/17 [Rx] Ferrous Sulfate 1 tab PO TID 08/04/18 [History] Isosorbide Mononitrate [Isosorbide Mononitrate ER] 1 tab PO DAILY 08/04/18 [ History] Pravastatin Sodium [Pravachol] 1 tab PO DAILY 08/04/18 [History] Sevelamer Carbonate 1 tab PO DAILY 08/04/18 [History] Timolol Maleate [Timoptic-XE 0.5% Ophth Gel] 1 drop EYEBOTH DAILY 08/04/18 [ History] Torsemide 1 tab PO BID 08/04/18 [History] Past Medical History Cardiovascular History: Reports: Hypertension Respiratory History: Reports: COPD Genitourinary History: Reports: Acute Renal Failure, Chronic Renal Insuffiency, Hydronephrosis, Pyelonephritis, Other (See Below) Other Genitourinary History: Stage 4 Musculoskeletal History: Reports: Back Pain, Chronic, Fracture Neurological History: Reports: CVA Endocrine/Metabolic History: Reports: Obesity/BMI 30+ - Past Surgical History Head Surgeries/Procedures: Reports: None HEENT Surgical History: Reports: Myringotomy w Tube(s) Cardiovascular Surgical History: Reports: Coronary Artery Stent, Other (See Below) Other Cardiovascular Surgeries/Procedures: Graft Repair. February of 2018 GI Surgical History: Reports: Cholecystectomy Male Surgical History: Reports: None Endocrine Surgical History: Reports: None Neurological Surgical History: Reports: None Musculoskeletal Surgical History: Reports: None Social & Family History - Family History Family Medical History: Noncontributory Cardiac: Reports: CAD - Tobacco Use Smoking Status *Q: Former Smoker Years of Tobacco use: 50 Used Tobacco, but Quit: Yes Month/Year Tobacco Last Used: 08/03 - Caffeine Use Caffeine Use: Reports: Coffee ED ROS GENERAL - Review of Systems Review Of Systems: See Below Constitutional: Denies: Fever, Chills HEENT: Reports: No Symptoms Respiratory: Reports: Shortness of Breath. Denies: Cough, Sputum Cardiovascular: Reports: Chest Pain, Dyspnea on Exertion. Denies: Edema, Palpitations GI/Abdominal: Reports: No Symptoms : Reports: No Symptoms Musculoskeletal: Reports: No Symptoms Skin: Reports: No Symptoms Neurological: Reports: No Symptoms ED EXAM, GENERAL - Physical Exam Exam: See Below Free Text/Narrative:: General: Elderly male, not in any distress, alert and oriented x3 HEENT: head is atraumatic normocephalic, eyes pupils equal round reactive to light, sclera clear no conjunctivitis appreciated. Ears tympanic membranes clear and bailey landmarks and light reflex are present bilaterally canals are clear. Nose no septal deviation, nares are clear, no blood present. Mouth mucosa is moist and pink no erythema or exudate noted in soft palate, tongue is midline uvula is midline, dentition is intact. Neck: Supple no thyromegaly no tracheal deviation. Nodes: Cervical nodes subclavicular nodes nontender no palpable lymphadenopathy noted. Lungs: Breath sounds are distant on appreciate any adventitious noises CV: Regular rate and rhythm S1 and S2 appreciated no murmurs rubs or gallops noted. No JVD noted Abdomen: Soft, nontender, no palpable masses or organomegaly appreciated, no distention no guarding bowel sounds are present, Neuro: GCS 15 Skin: Warm and dry, intact Extremities: No lower extremity edema appreciated, Course - Vital Signs Last Recorded V/S: Last Vital Signs Temp 96.9 F 08/04/18 10:17 Pulse 61 08/04/18 10:22 Resp 19 08/04/18 10:17 BP 180/96 H 08/04/18 11:17 Pulse Ox 94 L 08/04/18 10:17 - Orders/Labs/Meds Orders: Active Orders 24 hr Category Date Time Status Cardiac Monitoring [RC] .As Directed Care 08/04/18 10:30 Active EKG Documentation Completion [RC] ASDIRECTED Care 08/04/18 10:31 Active Peripheral IV Care [RC] . DIRECTED Care 08/04/18 12:04 Active Chest 2V [CR] Stat Exams 08/04/18 10:31 Taken Sodium Chloride 0.9% [Saline Flush] Med 08/04/18 12:04 Active 10 ml FLUSH ASDIRECTED PRN Peripheral IV Insertion Adult [OM.PC] Urgent Oth 08/04/18 12:04 Ordered EKG 12 Lead [EK] Stat Ther 08/04/18 10:31 Ordered Medication Orders Sodium Chloride (Saline Flush) 10 ml FLUSH ASDIRECTED PRN PRN Reason: Keep Vein Open Last Admin: 08/04/18 12:18 Dose: 10 ml Labs: Laboratory Tests 08/04/18 08/04/18 08/04/18 Range/Units 10:46 10:46 10:46 WBC 9.1 (4.5-11.0) K/uL RBC 3.57 L (4.30-5.90) M/uL Hgb 11.0 L (12.0-15.0) g/dL Hct 33.4 L (40.0-54.0) % MCV 94 (80-98) fL MCH 31 (27-31) pg MCHC 33 (32-36) % Plt Count 162 (150-400) K/uL Neut % (Auto) 57 (36-66) % Lymph % (Auto) 36 (24-44) % [place] % (Auto) 5 (2-6) % Eos % (Auto) 3 (2-4) % Baso % (Auto) 0 (0-1) % Sodium 138 L (140-148) mmol/L Potassium 5.0 (3.6-5.2) mmol/L Chloride 105 (100-108) mmol/L Carbon Dioxide 23 (21-32) mmol/L Anion Gap 15.0 H (5.0-14.0) mmol/L BUN 50 H (7-18) mg/dL Creatinine 5.4 H* (0.8-1.3) mg/dL Est Cr Clr Drug Dosing 12.37 mL/min Estimated GFR (MDRD) 10 L (>60) Glucose 111 H (74-106) mg/dL Lactic Acid 1.0 (0.4-2.0) mmol/L Calcium 8.6 (8.5-10.1) mg/dL Total Bilirubin 0.3 (0.2-1.0) mg/dL AST 27 (15-37) U/L ALT 26 (12-78) U/L Alkaline Phosphatase 93 (46-116) U/L Troponin I 1.093 H* (0.000-0.056) ng/mL NT-Pro-B Natriuret Pep 24775 H (5-125) pg/mL Total Protein 6.2 L (6.4-8.2) g/dL Albumin 2.4 L (3.4-5.0) g/dL Globulin 3.8 H (2.3-3.5) g/dL Albumin/Globulin Ratio 0.6 L (1.2-2.2) Meds: Medications Generic Name Dose Route Start Last Admin Trade Name Freq PRN Reason Stop Dose Admin Sodium Chloride 10 ml 08/04/18 12:04 08/04/18 12:18 Saline Flush FLUSH 10 ml ASDIRECTED PRN Administration Keep Vein Open Discontinued Medications Generic Name Dose Route Start Last Admin Trade Name Freq PRN Reason Stop Dose Admin Bumetanide 2 mg 08/04/18 12:04 08/04/18 12:19 Bumex IVPUSH 08/04/18 12:05 2 mg ONETIME ONE Administration Nitroglycerin 0.4 mg 08/04/18 10:32 08/04/18 11:17 Nitrostat SL 08/04/18 10:33 0.4 mg ONETIME ONE Administration Departure - Departure Time of Disposition: 12:52 Disposition: DC/Tfer to Acute Hospital 02 Condition: Fair Clinical Impression: Acute exacerbation of congestive heart failure Qualifiers: Heart failure type: unspecified Qualified Code(s): I50.9 - Heart failure, unspecified - Discharge Information Referrals: Bruno Collins MD [Primary Care Provider] - Forms: ED Department Discharge - My Orders Last 24 Hours: My Active Orders 08/04/18 10:30 Cardiac Monitoring [RC] .As Directed 08/04/18 10:31 EKG Documentation Completion [RC] ASDIRECTED Chest 2V [CR] Stat EKG 12 Lead [EK] Stat 08/04/18 12:04 Peripheral IV Care [RC] . DIRECTED Sodium Chloride 0.9% [Saline Flush] 10 ml FLUSH ASDIRECTED PRN Peripheral IV Insertion Adult [OM.PC] Urgent - Assessment/Plan Last 24 Hours: My Active Orders 08/04/18 10:30 Cardiac Monitoring [RC] .As Directed 08/04/18 10:31 EKG Documentation Completion [RC] ASDIRECTED Chest 2V [CR] Stat EKG 12 Lead [EK] Stat 08/04/18 12:04 Peripheral IV Care [RC] . DIRECTED Sodium Chloride 0.9% [Saline Flush] 10 ml FLUSH ASDIRECTED PRN Peripheral IV Insertion Adult [OM.PC] Urgent Plan: Assessment Acuity = acute Site and laterality = congestive heart failure exacerbation complicated with acute on chronic renal failure and elevated troponin of unclear etiology Etiology = fluid overload probable primary Manifestations = dyspnea with chest pressure Location of injury = Home Lab values = CBC unremarkable creatinine elevated 5.4 consistent with acute on chronic renal failure stage GV troponin is elevated of 1.093 of uncertain significance or etiology BNP markedly elevated 74,374 consistent with fluid overload type pattern albumin low at 2.4 consistent hypoalbuminemia EKG demonstrates a sinus rhythm there is no ST changes or depressions or elevations of Q waves in the lateral leads chest x-ray consistent with fluid overload type pattern congestive heart failure Plan Called discussed case with Dr. Jones hospitalist on-call [facility] at 1245 kindly accepted the patient in transport he'll be [facility] he has received 2 mg of Bumex IV as well as 1 sublingual nitroglycerin This note was dictated using [employer] voice recognition software please call with any questions on syntax or grammar.
[2018-08-04 11:19] VITALS: BP 180/96
[2018-08-04] MEDS ORDERED: Bumetanide 1 MG/4 ML MDV IVPUSH ONE (12:04)
[2018-08-04] MEDS ORDERED: Sodium Chloride 0.9% 10 ML Syringe FLUSH PRN (12:04)
== END 2018-08-04 15:24 ==
LOC: JP.ED 09:36
DX: I13.0 Hypertensive heart and chronic kidney disease with heart failure and stage 1 through stage 4 chronic kidney disease, or unspecified chronic kidney disease (principal); I50.9 Heart failure, unspecified; N18.4 Chronic kidney disease, stage 4 (severe); J44.9 Chronic obstructive pulmonary disease, unspecified; E66.9 Obesity, unspecified; Z79.82 Long term (current) use of aspirin; Z79.899 Other long term (current) drug therapy; Z87.891 Personal history of nicotine dependence
CPT/HCPCS: 36415; 71046; 80053; 83605; 83880; 84484; 85025; 93005; 96374; 99285; A9270; J3490; 93010